=== PATIENT | female | born 1975 | race Two or more races ===

== ENCOUNTER 2024-02-23 18:03 | Outpatient (REF) | payer MEDICAID, SELFPAY | END 2024-02-23 18:04 | disposition home or self-care (01) | LOC: HO.HHCLNP 18:03 | PROVIDERS: Visit Provider Nurse Practitioner Family | DX: R39.9 Unspecified symptoms and signs involving the genitourinary system (principal) | CPT/HCPCS: 87086 ==

== ENCOUNTER 2024-10-17 13:19 | Outpatient (REF) | payer MEDICAID, SELFPAY ==
--- NOTE | ~2024-10-17 | XR_ITS ---
EXAMINATION: XR HAND, RIGHT XR HAND, LEFT CLINICAL INFORMATION: Lateral hand pain and swelling. Lupus. COMPARISON: None. TECHNIQUE: PA, oblique, and lateral views of the right and left hand. FINDINGS: Right hand: No fracture or dislocation. Normal carpal alignment. No significant joint space narrowing or marginal osteophytes. No osseous erosion. No periarticular osteopenia. No abnormal soft tissue calcification. Left hand: No fracture or dislocation. Normal carpal alignment. No significant joint space narrowing or marginal osteophytes. No osseous erosion. No periarticular osteopenia. No abnormal soft tissue calcification. XR/XR hand RT min 3V IMPRESSION: RIGHT HAND: Unremarkable examination. LEFT HAND: Unremarkable examination. Electronically signed by: Anuel Hogan MD 10/17/2024 04:05 PM BOB
--- NOTE | ~2024-10-17 | XR_ITS ---
EXAMINATION: XR HAND, RIGHT XR HAND, LEFT CLINICAL INFORMATION: Lateral hand pain and swelling. Lupus. COMPARISON: None. TECHNIQUE: PA, oblique, and lateral views of the right and left hand. FINDINGS: Right hand: No fracture or dislocation. Normal carpal alignment. No significant joint space narrowing or marginal osteophytes. No osseous erosion. No periarticular osteopenia. No abnormal soft tissue calcification. Left hand: No fracture or dislocation. Normal carpal alignment. No significant joint space narrowing or marginal osteophytes. No osseous erosion. No periarticular osteopenia. No abnormal soft tissue calcification. XR/XR hand LT min 3V IMPRESSION: RIGHT HAND: Unremarkable examination. LEFT HAND: Unremarkable examination. Electronically signed by: Anuel Hogan MD 10/17/2024 04:05 PM BOB
== END 2024-10-17 13:20 | disposition home or self-care (01) ==
LOC: HO.HHCX 13:19
PROVIDERS: Visit Provider Family Medicine
DX: M79.641 Pain in right hand (principal); M79.642 Pain in left hand
CPT/HCPCS: 73130

== ENCOUNTER 2024-10-17 13:37 | Outpatient (REF) | payer MEDICAID, SELFPAY ==
[2024-10-17 16:09] LABS: Hematocrit 43.8 % (37.0-47.0); Hemoglobin 14.9 g/dl (12.0-16.0); Mean Corpuscular Hemoglobin 30.4 pg (27.0-33.0); Mean Corpuscular Volume 89.4 fL (80.0-98.0); Mean Platelet Volume 11.1 fL (9.4-12.3); Platelet Count 216 X10*3/uL (160-400); White Blood Count 7.7 X10*3/uL (4.8-10.8)
[2024-10-17 16:22] LABS: Estimated Average Glucose 100 mg/dL; Hemoglobin A1C 119.5487 umol/L; Hemoglobin A1c % 5.1 % (<6.0); Total Hemoglobin (HGBA1C) 3761.7061 umol/L
[2024-10-17 16:27] LABS: Rheumatoid Factor < 13.0 IU/mL (<15.0)
[2024-10-17 16:32] LABS: Alanine Aminotransferase 37 U/L (0-31); Albumin Level 4.3 g/dL (3.5-5.0); Anion Gap 11 (12-20); Aspartate Amino Transferase 28 U/L (5-31); Bilirubin Direct 0.2 mg/dL (0.0-0.5); Bilirubin Total 0.5 mg/dL (0.0-1.0); Blood Urea Nitrogen 12 mg/dL (9-16); Calcium 9.4 mg/dL (8.4-10.2); Carbon Dioxide 28 mmol/L (22-29); Chloride 104 mmol/L (96-108); Cholesterol 175 mg/dL (<200); Estimated Glomerular Filt Rate > 60; Glucose Random 91 mg/dL (60-115); HDL Cholesterol 53 mg/dL (>40); LDL Cholesterol Calculated 97 mg/dL (<100); Potassium 3.8 mmol/L (3.3-5.1); Sodium 139 mmol/L (135-145); Total Protein 7.4 g/dL (6.5-8.0); Triglycerides 128 mg/dL (<150)
[2024-10-17 16:56] LABS: Free T4 (Free Thyroxine) 0.96 ng/dL (0.71-1.85); Thyroid Stimulating Hormone 2.73 uIU/mL (0.32-4.0); Vitamin D 25-OH Total 39.2 ng/mL (>30)
[2024-10-17 17:00] LABS: Alkaline Phosphatase 77 U/L (39-117)
[2024-10-17 17:27] LABS: Erythrocyte Sedimentation Rate 7 MM/HR (0-20)
[2024-10-17 18:54] LABS: CT PCR NOT DETECTED (Not Detect.); NG PCR NOT DETECTED (Not Detect.)
[2024-10-18 08:23] LABS: Hepatitis A Antibody IgG REACTIVE (Nonreactive); ~Hepatitis A Antibody IgG 11.21 S/CO (0.00-0.99)
[2024-10-18 08:24] LABS: HBS Num1 1.03 mIU/mL (0-7.99); HBc Num1 0.11 S/CO (0.00-0.79); HBsAGNum1 0.39 S/CO (0.00-0.99); HIV AB/AG Nonreactive (Nonreactive); HIV Num 1 0.09 S/CO (0.00-0.99); Hepatitis B Core Antibody Nonreactive (Nonreactive); Hepatitis B Surface Antigen Negative (Negative); ~HepC Num1 0.05 S/CO (0.00-0.79); ~Hepatitis B Surface Antibody NONREACTIVE (Nonreactive); ~Hepatitis C Antibody Nonreactive (Nonreactive)
[2024-10-18 17:54] LABS: Lyme Abs Screen <0.90 index
[2024-10-21 11:18] LABS: RPR Rapid Plasma Reagin NON-REACTIVE (NON-REACTIVE)
[2024-10-22 09:04] LABS: Anti Nuclear Antibody Screen POSITIVE (NEGATIVE)
[2024-10-22 09:12] LABS: Anti Nuclear Antibody Pattern Nuclear, Homogeneous
== END 2024-10-17 13:38 | disposition home or self-care (01) ==
LOC: HO.HHCL 13:37
PROVIDERS: Visit Provider Family Medicine
DX: Z11.3 Encounter for screening for infections with a predominantly sexual mode of transmission (principal); Z11.4 Encounter for screening for human immunodeficiency virus [HIV]; M79.641 Pain in right hand; M79.642 Pain in left hand; M79.89 Other specified soft tissue disorders
CPT/HCPCS: 80048; 80061; 80076; 82306; 83036; 84439; 84443; 85027; 85652; 86038; 86039; 86140; 86431; 86592; 86617; 86618; 86704; 86706; 86708; 86803; 87340; 87389; 87491; 87591

== ENCOUNTER 2025-02-18 10:10 | Outpatient (REF) | payer MEDICAID, SELFPAY ==
--- OUTSIDE RECORDS SUMMARY | 2025-02-18 11:37 | XMS_ITS | Clinical Summary ---
Author Organization [employer] Address [address] [place] [address] Care Team Providers Care Abattoir Manager Name Role Phone Chayito Holman DO Primary Care Provider [phone] Allergies No known active allergies Medications * This document contains information received from the source organization and may not represent a complete record from that organization. Blood Pressure Monitoring (Comfort Touch BP Cuff/Large) misc 1 kit 2 times daily. 1 each 07/09/20 24 Active omeprazole OTC (PriLOSEC OTC) 20 MG EC tablet Take 1 tablet (20 mg) by mouth before breakfast. Do not crush, chew, or split. 30 tablet 11 07/09/20 24 025 Active furosemide (Lasix) 20 MG tablet Take 1 tablet (20 mg) by mouth Once per day for 7 days. 7 tablet 10/15/20 24 Active naproxen (Naprosyn) 500 MG tablet Take 1 tablet (500 mg) by mouth if needed in the morning and at bedtime for mild pain. 40 tablet 1 11/18/19 25 026 Active baclofen (Lioresal) 10 MG tablet Take 1 tablet (10 mg) by mouth if needed in the morning, at noon, and at bedtime for muscle spasms. 60 tablet 1 11/18/19 25 Active Diclofenac Sodium 1 % gel Apply 2 g topically if needed in the morning, at noon, in the evening, and at bedtime (pain). 150 g 3 11/18/19 25 Active FLUoxetine (PROzac) 10 MG tablet Take 1 tablet (10 mg) by mouth Once per day. 30 tablet 2 11/18/19 25 Active hydrOXYzine pamoate (Vistaril) 25 MG capsule Take 1 capsule (25 mg) by mouth if needed in the morning, at noon, in the evening, and at bedtime for anxiety. 30 capsule 1 11/18/19 25 Active Drospirenone (Slynd) 4 MG tablet Take 1 tablet by mouth Once per day. 28 tablet 11 02/19/20 25 Active cetirizine (ZyrTEC) 10 MG tablet Take 1 tablet (10 mg) by mouth Once per day. 30 tablet 2 02/19/20 25 025 Active norethindrone (Ortho Micronor) 0.35 MG tabletIndications :Family planning counseling,Encoun ter for surveillance of contraceptive pills Take 1 tablet (0.35 mg) by mouth Once per day. 28 tablet 11 01/08/20 25 025 Discontinued Active Problems Problem Noted Date Diagnosed Date Perimenopause 01/07/2025 Assessment & Plan (01/07/2025 5:13 PM EDT): I ordered labs today and I refer patient for follow-up regarding perimenopausal state and counseling about control Encounter for surveillance of contraceptive pill s 01/07/2025 Assessment & Plan (01/07/2025 5:13 PM EDT): I will refill norethindrone 0.35 mg daily Moderate major depression 11/18/2024 SLE (systemic lupus erythematosus) 10/18/2024 Anxiety 10/18/2024 Chronic gastroesophageal reflux disease 10/18/20 24 Raynaud disease 10/18/2024 Encounters * This document contains information received from the source organization and may not represent a complete record from that organization. Date Type Department Care Team Description 02/18/2025 9:15 AM EDT Office Visit [facility] [address] [place] [phone] Neetu Strickland CNM Cervical cancer screening (Primary Dx); Encounter for surveillance of contraceptive pills; Amenorrhea; Environmental allergies 02/18/2025 Travel 01/07/2025 3:20 PM EDT Office Visit [facility] [address] [place] [address] Susanna Flynn MD Family planning counseling; Encounter for surveillance of contraceptive pills; Perimenopause from Last 3 Months Immunizations Name Administration Dates Next Due Hep B, adult 11/18/2024 Tdap 11/18/2024 Family History Medical History Relation Name Comments No Known Problems Brother No Known Problems Father Heart disease Maternal Grandfather Diabetes Mother Heart disease Mother Hypertension Mother Heart disease Mother's Brother Diabetes Paternal Grandmother No Known Problems Sister Relation Name Status Comments Brother Father Maternal Grandfather Mother Mother's Brother Paternal Grandmother Sister Social History Tobacco Use Types Packs/Day Years Used Date Smoking Tobacco: Never Passive Smoke Exposure: Never Smokeless Tobacco: Never Tobacco Cessation:Counseling Given: Not Answered Alcohol Use Standard Drinks/Week Comments Not Currently 0 (1 standard drink = 0.6 oz pur e alcohol) Depression Answer Date Recorded Patient Health Questionnaire-9 Score 10 11/18/2024 Patient Health Questionnaire-9 Score 10 11/18/2024 Last PHQ-9: Questionnaire Data Not on file 0 11/18/2024 Housing Stability Answer Date Recorded What is your housing situation today? I have nicki leon 11/18/[address] you li ve. Do you have problems with any of the following? None of the above 11/18/2024 Food Insecurity Answer Date Recorded Within the past 12 months, y ou worried that your food would run out before you got money to buy more: Never True 11/18/2024 Within the past 12 months,th e food you bought just didn't last and you didn't have enough money to get more: Never True Transportation Answer Date Recorded In the past 12 months, has l ack of transportation kept you from medical appts, meetings, work or from getting things needed for daily living? No 11/18/2024 Utilities Answer Date Recorded In the past 12 months, has t he [employer], gas, oil or water company threatened to shut off services in your home? No 11/18/2024 Depression Answer Date Recorded Patient Health Questionnaire-2 Score 2 11/18/2024 Internet Access Answer Date Recorded Internet Access Q1 Yes 11/18/2024 Internet Access Q2 Not on file 11/18/2024 Comments No Sex and Gender Information Value Date Recorded Sex Assigned at Female 02/23/2024 9:15 AM EDT Legal Sex Female 9:10 AM EDT Gender Identity Female 02/23/2024 9:15 AM EDT Sexual Orientation Straight 02/23/2024 9: 15 AM EDT Last Filed Vital Signs Vital Sign Reading Time Taken Comments Blood Pressure 144/83 02/18/2025 9:31 AM EDT Pulse 86 02/18/2025 9:31 AM EDT Temperature 36.6 ??C (97.8 ??F) 02/18/2025 9:31 AM ED T Respiratory Rate 16 02/18/2025 9:31 AM EDT Oxygen Saturation 99% 02/18/2025 9:31 AM EDT Inhaled Oxygen Concentration - - Weight 91.6 kg (202 lb) 02/18/2025 9:31 AM EDT Height 162.6 cm (5' 4 ) 02/18/2025 9:31 AM EDT Body Mass Index 34.67 02/18/2025 9:31 AM EDT Plan of Treatment Health Maintenance Due Date Last Done Comments CT Colonography 1977 Colonoscopy 1977 Colorectal Cancer Screening 1977 FIT DNA/Cologuard 1977 FIT 1977 FOBT 1977 Sigmoidoscopy 1977 Alcohol/Substance Use Screening 1989 Pap Smear 1998 Cervical Cancer Screening 2007 HPV/Cotest 2007 COVID-19 Vaccine ( - 2023-2 5 season) 2024 Influenza Vaccine (#1) 2024 Hepatitis B Vaccines (2 of 3 - 19+ 3-dose series) 12/16/2024 11/18/2024 Tobacco Screening 10/18/2025 10/18/2024 Depression Screening 11/18/2025 11/18/2024, 11/18/2024 SDOH Screening 11/18/2025 11/18/2024 Mammogram 12/03/2025 12/03/2024, 12/03/2024 Family Planning (PISQ) 02/18/2026 02/18/2025 Zoster Vaccines (1 of 2) 2027 DTaP/Tdap/Td Vaccines (2 - T d or Tdap) 11/18/2034 11/18/2024 RSV Patients and Patients Aged 60 years or older (1 - 1-dose 75+ series) 2052 HIV Screening Completed 10/17/2024 Hepatitis C Screening Completed 10/17/2024 HIB Vaccines Aged Out No longer eligi ble based on patient's age to complete this topic HPV Vaccines Aged Out No longer eligi ble based on patient's age to complete this topic Hepatitis A Vaccines Aged Out No long er eligible based on patient's age to complete this topic IPV Vaccines Aged Out No longer eligi ble based on patient's age to complete this topic Meningococcal Vaccine Aged Out No anna latesha eligible based on patient's age to complete this topic Pneumococcal Vaccine: Pediatrics (0 to 5 Years) and At-Risk Patients (6 to 49) Years) Aged Out No longer eligible b ased on patient's age to complete this topic RSV under 20 months Aged Out No longe r eligible based on patient's age to complete this topic Rotavirus Vaccines Aged Out No longer eligible based on patient's age to complete this topic Procedures Procedure Name Priority Date/Time Associated Diagnosis Comments HEPATITIS C AB W/REFL TO HCV RNA, QN, PCR Routine 10/17/2024 3:42 PM EST Bilateral hand pain Swelling of both lower extremities Encounter for surveillance of contraceptive pills HIV 1/2 ANTIGEN/ANTIBODY, FOURTH GENERATION W/RFL Routine 10/17/2024 3:42 PM EST Bilateral hand pain Swelling of both lower extremities Encounter for surveillance of contraceptive pills from Last 3 Months or Most Recently Relevant to Health Maintenance Results * Hepatitis C Antibody with Reflex to HCV, RNA, Quantitative, Real-Time PCR (10/17/2024 3:42 PM EST) Hepatitis C Antibody Nonreactive Nonreactive [facility] Comment:Antibodies to HCV no t detected; does not exclude early acuteHCV infection. Blood Venous blood specimen / Unknown 10/17/2024 3:42 PM EST 10/17/2024 3:56 PM EST us Chayito Holman DO LAB BLOOD ORDERABLES Final R esult [facility] [address] [place] [phone] * HIV-1/2 Antigen and Antibodies, Fourth Generation, with Reflexes (10/17/2024 3:42 PM EST) HIV AB/AG Nonreactive Nonreactive [facility] Comment:HIV-1 p24 Ag and/or HIV-1/HIV-2 Ab not detected.A test result that is nonreactive does not exclude thepossibility of exposure to or infection with HIV-1 and/orHIV-2. Nonreactive results in this assay for individualswith prior exposure to HIV-1 and/or HIV-2 may be due toantigen and antibody levels that are below the limit ofdetection of this assay.The [employer] HIV Ag/Ab Combo assay result andsupplemental assay results should be interpreted inconjunction with the patient's clinical presentation,history and other laboratory results. If the results areinconsistent with clinical evidence, additional testing issuggested to confirm the result. Blood Venous blood specimen / Unknown 10/17/2024 3:42 PM EST 10/17/2024 3:56 PM EST us Chayito Holman DO LAB BLOOD ORDERABLES Final R esult [facility] [address] [place] [phone] from Last 3 Months or Most Recently Relevant to Health Maintenance [facility] Care Teams Abattoir Manager Relationship Specialty Start Date End Date Chayito Holman DO [address] [place] [id number] PCP - General Family Medicine 11/19/24
--- OUTSIDE RECORDS SUMMARY | 2025-02-18 11:37 | XMS_ITS | Clinical Summary ---
Author Organization [facility] Address [address] [place] [address] Care Team Providers Care Show Host Or Hostess Name Role Phone [facility] Primary Care Provider [phone] Allergies No known active allergies Medications acetaminophen (TYLENOL) 650 mg 8 hr tablet Take 650 mg by mouth every 8 hours as needed. 5 Active diclofenac (VOLTAREN) 1% gel Apply 2 g topically to the affected area 4 times daily as needed. 5 Active FLUoxetine (PROzac) 10 mg tablet Take 10 mg by mouth daily. 5 Active naproxen (NAPROSYN) 500 mg tablet Take 500 mg by mouth 2 times daily as needed. 5 11/18/19 26 Active norethindrone (MICRONOR) 0.35 mg tablet Take 0.35 mg by mouth daily. 4 10/14/20 25 Active Active Problems Problem Noted Date Diagnosed Date Systemic lupus erythematosus 12/23/2024 Arthralgia of multiple sites 12/23/2024 Language barrier 12/23/2024 Encounters Date Type Department Care Team Description 12/25/2024 Results Follow-Up [facility] [address] [place] [address] White Sugar Supervisor: Heidi Rawls MD 12/23/2024 3:00 PM EST - 12/23/2024 11:59 PM EST Hospital Encounter [facility] XRay [address] [place] [address] Heidi Jenkins MD Arthralgia of multiple sites Discharge Disposition: Home or Self Care (01) 12/23/2024 2:40 PM EST Office Visit [facility] [address] [place] [phone] White [employer] Supervisor: Heidi Rawls MD Systemic lupus erythematosus with other organ involvement, unspecified SLE type (Primary Dx); Bilateral hand pain; Arthralgia of multiple sites; Language barrier from Last 3 Months Social History Tobacco Use Types Packs/Day Years Used Date Smoking Tobacco: Former Cigarettes Passive Smoke Exposure: Past Smokeless Tobacco: Never Tobacco Cessation:Counseling Given: Not Answered Alcohol Use Standard Drinks/Week Comments Yes 0 (1 standard drink = 0.6 oz pur e alcohol) Comments Unknown Sex and Gender Information Value Date Recorded Sex Assigned at Female 10/21/2024 10:58 AM EST Legal Sex Female 10:55 AM EST Gender Identity Female 10/21/2024 10:58 AM EST Sexual Orientation Not on file Last Filed Vital Signs Vital Sign Reading Time Taken Comments Blood Pressure 125/85 12/23/2024 2:28 PM EST Pulse 70 12/23/2024 2:28 PM EST Temperature 36.9 ??C (98.4 ??F) 12/23/2024 2:28 PM ES T Respiratory Rate - - Oxygen Saturation - - Inhaled Oxygen Concentration - - Weight 91.6 kg (202 lb) 12/23/2024 2:28 PM EST Height - - Body Mass Index - - Plan of Treatment Upcoming Encounters Date Type Department Care Team (Late st Contact Info) Description 07/11/2025 11:20 AM EDT Office Visit [facility] [address] [place] [phone] White [employer] Supervisor: Heidi Naik MD [address] [place] [phone] Health Maintenance Due Date Last Done Comments Cervical Cancer Screening 1977 Cologuard 1977 Colonoscopy 1977 HPV and Pap Smear 1977 Pap Smear 1977 Sigmoidoscopy 1977 COVID-19 Vaccine (1 - 2023-2 5 season) 2024 Alcohol/Substance Use Screening 10/23/2024 Depression Screening and Follow-Up 10/23/2024 Social Drivers of Health Annual Screening 10/23/2024 Hepatitis B Vaccines (2 of 3 - 19+ 3-dose series) 12/16/2024 11/18/2024 Influenza Vaccine (Season Ended) 2025 Colon Cancer Screening 10/17/2025 FOBT / Fit Test 10/17/2025 10/17/2024 Mammogram 12/03/2026 12/03/2024 DTaP,Tdap,and Td Vaccines (2 - Td or Tdap) 11/18/2034 11/18/2024 RSV Vaccine (60+ years old a nd patients) (1 - 1-dose 75+ series) 2052 HIV Screening Completed 10/17/2024, 10/17/2024 Hepatitis C Screening Completed 10/17/2024 Pneumococcal Vaccine: Pediatric (0-5 Years) and At-Risk Patients (6-50 Years) Aged Out No longer eligible based on patient's age to complete this topic Procedures * Due to [place] state law, this organization might not be sharing negative HIV tests. Procedure Name Priority Date/Time Associated Diagnosis Comments LUIS A, TITER AND PATTERN Routine 3:24 PM EST Systemic lupus erythematosus with other organ involvement, unspecified SLE type MCKNIGHT TOP, URN Routine 12/23/2024 3:24 PM EST Systemic lupus erythematosus with other organ involvement, unspecified SLE type UA/CULTURE REFLEX Routine 12/23/2024 3:2 4 PM EST Systemic lupus erythematosus with other organ involvement, unspecified SLE type URINALYSIS W/REFLEX TO MICROSCOPIC & CULTURE Routine 12/23/2024 3:24 PM EST Systemic lupus erythematosus with other organ involvement, unspecified SLE type PROTEIN ELECTROPHORESIS W/REFLEX TO IMMUNOFIXATION, SERUM Routine 12/23/2024 3:24 PM EST Systemic lupus erythematosus with other organ involvement, unspecified SLE type SSA & SSB (SJOGREN'S) ANTIBODIES Routine 12/23/2024 3:24 PM EST Systemic lupus erythematosus with other organ involvement, unspecified SLE type VITAMIN D, 25-HYDROXY, TOTAL, IMMUNOASSAY Routine 12/23/2024 3:24 PM EST Systemic lupus erythematosus with other organ involvement, unspecified SLE type TSH REFLEX FREE T4 Routine 12/23/2024 3: 24 PM EST Systemic lupus erythematosus with other organ involvement, unspecified SLE type PROTEIN, RANDOM URINE WITH CREATININE Routine 12/23/2024 3:24 PM EST Systemic lupus erythematosus with other organ involvement, unspecified SLE type MICROALBUMIN, RANDOM URINE WITH CREATININE Routine 12/23/2024 3:24 PM EST Systemic lupus erythematosus with other organ involvement, unspecified SLE type COMPREHENSIVE METABOLIC PANEL Routine 12/23/2024 3:24 PM EST Systemic lupus erythematosus with other organ involvement, unspecified SLE type CBC AUTO DIFFERENTIAL Routine 12/23/2024 3:24 PM EST Systemic lupus erythematosus with other organ involvement, unspecified SLE type C-REACTIVE PROTEIN Routine 12/23/2024 3: 24 PM EST Systemic lupus erythematosus with other organ involvement, unspecified SLE type SEDIMENTATION RATE, AUTOMATED Routine 12/23/2024 3:24 PM EST Systemic lupus erythematosus with other organ involvement, unspecified SLE type RHEUMATOID FACTOR Routine 12/23/2024 3:2 4 PM EST Systemic lupus erythematosus with other organ involvement, unspecified SLE type CYCLIC CITRULLLNATED PEPTIDE (CCP) ANTIBODY, IGG Routine 12/23/2024 3:24 PM EST Systemic lupus erythematosus with other organ involvement, unspecified SLE type DNA ANTIBODY, DOUBLE-STRANDED Routine 12/23/2024 3:24 PM EST Systemic lupus erythematosus with other organ involvement, unspecified SLE type DNA ANTIBODY (DS) CRITHIDIA IFA W/REFLEX Routine 12/23/2024 3:24 PM EST Systemic lupus erythematosus with other organ involvement, unspecified SLE type COMPLEMENT C3 Routine 12/23/2024 3:24 PM EST Systemic lupus erythematosus with other organ involvement, unspecified SLE type COMPLEMENT C4 Routine 12/23/2024 3:24 PM EST Systemic lupus erythematosus with other organ involvement, unspecified SLE type ANALYZER LUIS A, IFA W/RFX TO TTR/PAT, SYSTEMIC AUTOIMMUNE PANEL [id number] Routine 12/23/2024 3:24 PM EST Systemic lupus erythematosus with other organ involvement, unspecified SLE type XR FOOT 3+ VW RIGHT Routine 12/23/2024 3 :21 PM EST Arthralgia of multiple sites XR FOOT 3+ VW LEFT Routine 12/23/2024 3: 21 PM EST Arthralgia of multiple sites XR HAND 3+ VW RIGHT Routine 12/23/2024 3 :21 PM EST Arthralgia of multiple sites XR HAND 3+ VW LEFT Routine 12/23/2024 3: 21 PM EST Arthralgia of multiple sites from Last 3 Months Results * Due to [place] state law, this organization might not be sharing negative HIV tests. * Mcknight Top, Urine (12/23/2024 3:24 PM EST) Extra Tube Hold for add-ons. 12/23/2024 8:05 PM EST [facility] Comment:Auto resulted. Urine Urine specimen collection, clean catch / Unknown Non-Blood Collection / Unknown 12/23/2024 3:24 PM EST 12/23/2024 5:00 PM EST Heidi Camacho MD LAB URINE ORDERABLES Final Result Performing Organization Address City/State/[facility] Co de Phone Number [facility] [address] [place] [address], [place] * (ABNORMAL) LUIS A, Titer and Pattern (12/23/2024 3:24 PM EST) LUIS A Titer 1 1:160(H) titer 01/01/2025 1:18 PM EDT [facility]/N Index [facility] Comment: Reference Ranges for Anti-Nuclear Ab Titer: ?? <1:40 ?Negative ?? 1:40-1:80 ??Low Antibody Level ?? >1:80 ?Elevated Antibody Level LUIS A Pattern 1 NUCLEAR, HOMOGENEOUS 01/01/2025 1:18 PM EDT [facility]/N [facility] Comment: Homogeneous pattern is associated with systemic lupus erythematosus (SLE), drug-induced lupus and juvenile idiopathic arthritis. AC-1: Homogeneous International Consensus on LUIS A Patterns https://doi.org/10.1515/imfq-2109-0963 Blood Structure of peripheral vein / Unknown Venipuncture / Unknown 12/23/2024 3:24 PM EST 12/23/2024 3:43 PM EST Narrative [facility] - 01/01/2025 1:18 PM EDT [facility] Received Date:[id number] Heidi Camacho MD LAB BLOOD ORDERABLES Final Result Performing Organization Address [facility] Co de Phone Number [facility] [address] [place] [address], [place] [phone] * (ABNORMAL) ANAlyzeR LUIS A, IFA w/Rfx Ttr/Pat, Systemic Autoimmune Panel 1 (includes LUIS A, IFA w/Rfx, DNA (ds) w/Rfx to Ttr, Chromatin, Sm, SM/SERVICES CLERK, SERVICES CLERK, SSA, SSB, Scl70, Jo1, CENPB, C3c, C4c, CardiolipinIgA/G/M, B2-GPI IgA/G/M, RF IgA/G/M, CCP IgG, MCV Ab (12/23/2024 3:24 PM EST) LUIS A Screen, IFA POSITIVE(A) NEGATIVE 01/02/20 1:18 PM EDT [facility] Comment: LUIS A IFA is a first line screen for detecting the presence of up to approximately 150 autoantibodies in various autoimmune diseases. A positive LUIS A IFA result is suggestive of autoimmune disease and reflexes to titer and pattern. Further laboratory testing may be considered if clinically indicated. For additional information, please refer to http://education.[employer]/faq/LKL571 (This link is being provided for informational/educational purposes only.) DNA Ab(ds) Crithidia, IFA NEGATIVE NEGATIVE 01/01/2025 1:18 PM EDT [facility] Chromatin Antibody <1.0 NEG <1.0 NEGATIVE AI 01/01/2025 1:18 PM EDT [facility] Sm Antibody <1.0 NEG <1.0 NEGATIVE AI 01/01/2025 1:18 PM EDT [facility] SM/SERVICES CLERK Antibody <1.0 NEG <1.0 NEGATIVE AI 01/01/2025 1:18 PM EDT [facility] SERVICES CLERK Antibody 1.0 POS(A) <1.0 NEGATIVE AI 01/01/2025 1:18 PM EDT [facility] Sjogren's Ab (SS-A) 1.3 POS(A) <1.0 NEGATIVE AI 01/01/2025 1:18 PM EDT [facility] Sjogren's Ab (SS-B) <1.0 NEG <1.0 NEGATIVE AI 01/01/2025 1:18 PM EDT [facility] SCL-70 Antibody <1.0 NEG <1.0 NEGATIVE AI 01/01/2025 1:18 PM EDT [facility] JENNIFER-1 Antibody <1.0 NEG <1.0 NEGATIVE AI 01/01/2025 1:18 PM EDT [facility]/ [facility] Centromere B Antibody <1.0 NEG <1.0 NEGATIVE AI 01/01/2025 1:18 PM EDT [facility] Complement Component C3C 124 83 - 193 mg/dL 01/01/2025 1:18 PM EDT [facility] Complement Component C4C 23 15 - 57 mg/dL 01/01/2025 1:18 PM EDT [facility] Cardiolipin Ab IgA 6.7 APL-U/mL 2024 1:18 PM EDT [facility]/ [facility] Comment: Value ?Interpretation ----- ? <20.0 ?Antibody not detected > or = 20.0 ??Antibody detected Cardiolipin Ab IgG <2.0 GPL-U/mL 2024 1:18 PM EDT [facility]/ [facility] Comment: Value ?Interpretation ----- ? <20.0 ?Antibody not detected > or = 20.0 ??Antibody detected Cardiolipin Ab IgM <2.0 MPL-U/mL 2024 1:18 PM EDT [facility]/ [facility] Comment: Value ?Interpretation ----- ? <20.0 ?Antibody not detected > or = 20.0 ??Antibody detected Beta2-Glycoprotein I (IgA) 9.1 U/mL 01/01/2025 1:18 PM EDT [facility] Comment: Value ?Interpretation ----- ? <20.0 ?Antibody not detected > or = 20.0 ??Antibody detected Beta2-Glycoprotein I (IgG) 2.6 U/mL 01/01/2025 1:18 PM EDT [facility] [employer] [facility] Comment: Value ?Interpretation ----- ? <20.0 ?Antibody not detected > or = 20.0 ??Antibody detected Beta2-Glycoprotein I (IgM) <2.0 U/mL 01/01/2025 1:18 PM EDT [facility] [employer] [facility] Comment: The antiphospholipid antibody syndrome (APS) is a clinical-pathologic correlation that includes a clinical event (e.g. arterial or venous thrombosis, morbidity) and persistent positive antiphospholipid antibodies (IgM, IgG Cardiolipin or b2GPI antibodies greater than the 99th percentile; or a lupus anticoagulant). International consensus guidelines for APS suggest waiting at least 12 weeks before retesting to confirm antibody persistence. The Systemic Lupus International Collaborating Clinics immunological classification criteria for systemic lupus erythematosus (SLE) include testing for isotype IgA, which has yet to be incorporated into APS criteria. Low level antiphospholipid antibodies may sometimes be detected in the setting of infection, drug therapy or aging. For additional information, please refer to http://education.SyndicateRoom/faq/XFN934 (This link is being provided for informational/educational purposes only.) Value ?Interpretation ----- ? <20.0 ?Antibody not detected > or = 20.0 ??Antibody detected Rheumatoid Factor IgA <5 U 01/01/2025 1:18 PM EDT [facility] [employer] [facility] Comment: ?Reference Range: ?<=6 ??NEGATIVE ?>6 ?? POSITIVE Rheumatoid Factor IgG <5 U 01/01/2025 1:18 PM EDT [facility] Comment: ?Reference Range: ?<=6 ??NEGATIVE ?>6 ?? POSITIVE Rheumatoid Factor IgM <5 U 01/01/2025 1:18 PM EDT [facility] Comment: ?Reference Range: ?<=6 NEGATIVE ?>6 ??POSITIVE Cyclic Citrullinated Peptide (CCP) Ab (IgG) <16 Units 01/01/2025 1:18 PM EDT [facility] Comment: ?Reference Range: ?NEGATIVE: ? <20 ?WEAK POSITIVE: ? 20-39 ?MODERATE POSITIVE: ? 40-59 ?STRONG POSITIVE ? >59 Mutated Citrullinated Vimentin (MCV) Ab <20 <20 U/mL 01/01/2025 1:18 PM EDT [facility] [employer] [facility] Comment: Anti-mutated citrullinated vimentin antibody may be used as a second-line marker of rheumatoid arthritis, in addition to rheumatoid factor and anti-cyclic citrullinated peptide (CCP). Thyroid Peroxidase Antibodies <1 <9 IU/mL 01/01/2025 1:18 PM EDT [facility]/ [employer] [facility] [facility] Blood Structure of peripheral vein / Unknown Venipuncture / Unknown 12/23/2024 3:24 PM EST 12/23/2024 3:43 PM EST Narrative [facility] - 01/01/2025 1:18 PM EDT [facility] Received Date: Heidi Camacho MD LAB BLOOD ORDERABLES Final Result [facility] [place] [address], [address] [place] [address], [place] [phone] [facility] [address] [facility] [address], [place] [phone] * Urinalysis W/Reflex to Microscopic & Culture (12/23/2024 3:24 PM EST) Color, Urine Yellow Colorless, Light Yellow, Yellow, Dark Yellow 12/23/2024 5:12 PM EST [facility] Clarity, Urine Clear Clear 12/23/2024 5:12 PM EST [facility] Specific [place], Urine 1.017 1.005 - 1.030 12/23/2024 5:12 PM EST [facility] pH, Urine 6.0 4.6 - 8.0 12/23/2024 5:12 PM EST [facility] Protein, Urine Negative Negative 12/23/2024 5:12 PM EST [facility] Glucose, Urine Negative Negative 12/23/2024 5:12 PM EST [facility] Ketones, Urine Negative Negative 12/23/2024 5:12 PM EST [facility] Bilirubin, Urine Negative Negative 12/23/2024 5:12 PM EST [facility] Blood, Urine Negative Negative 12/23/2024 5:12 PM EST [facility] Nitrite, Urine Negative Negative 12/23/2024 5:12 PM EST [facility] Urobilinogen, Urine Normal Normal 12/23/2024 5:12 PM EST [facility] Leukocyte Esterase, Urine Negative Negative 12/23/2024 5:12 PM EST [facility] Urine Urine specimen collection, clean catch / Unknown Non-Blood Collection / Unknown 12/23/2024 3:24 PM EST 12/23/2024 5:00 PM EST Heidi Camacho MD LAB URINE ORDERABLES Final Result [facility] [address] [place] [address], [place] * DNA Antibody (ds) Crithidia IFA w/Reflex (12/23/2024 3:24 PM EST) DNA Ab(ds) Crithidia, IFA Negative Negative 12/27/2024 11:55 AM EST [facility]) Blood Structure of peripheral vein / Unknown Venipuncture / Unknown 12/23/2024 3:24 PM EST 12/23/2024 3:43 PM EST Narrative [facility] - 12/27/2024 11:55 AM EST [facility] Received Date:[id number] Heidi Camacho MD LAB BLOOD ORDERABLES Final Result [facility] [address], [place] [address], [facility] ([facility]) [address] [place], [place] , [place] * (ABNORMAL) SSA & SSB (SJOGREN'S) Antibodies (12/23/2024 3:24 PM EST) Sjogren's Ab (SS-A) 1.5 POS(A) <1.0 NEG AI 12/24/2024 1:58 PM EST [facility] Sjogren's Ab (SS-B) <1.0 NEG <1.0 NEG AI 12/24/2024 1:58 PM EST [facility] Blood Structure of peripheral vein / Unknown Venipuncture / Unknown 12/23/2024 3:24 PM EST 12/23/2024 3:43 PM EST Narrative [facility] - 12/24/2024 1:58 PM EST [facility] Received Date: Heidi Camacho MD LAB BLOOD ORDERABLES Final Result [facility] [address], [place] [address], [facility] [employer] [facility] [address] [facility] [address], [place] [address], * Protein Electrophoresis w/Reflex to Immunofixation, Serum (12/23/2024 3:24 PM EST) Protein, Total 7.1 6.1 - 8.1 g/dL 12/24/2024 10:13 PM EST [facility] Albumin 4.2 3.8 - 4.8 g/dL 12/24/2024 10:13 PM EST [facility] Alpha 1 Globulin 0.3 0.2 - 0.3 g/dL 12/24/2024 10:13 PM EST [facility] Alpha 2 Globulin 0.8 0.5 - 0.9 g/dL 12/24/2024 10:13 PM EST [facility] Beta 1 Globulin 0.4 0.4 - 0.6 g/dL 12/24/2024 10:13 PM EST [employer] Beta 2 Globulin 0.4 0.2 - 0.5 g/dL 12/24/2024 10:13 PM EST [facility] [facility] Gamma Globulin 1.1 0.8 - 1.7 g/dL 12/24/2024 10:13 PM EST [facility] Interpretation See Comments 12/24/2024 10:13 PM EST [employer] [facility] Comment: Normal Serum Protein Electrophoresis Pattern. No abnormal protein bands (M-protein) detected. Blood Structure of peripheral vein / Unknown Venipuncture / Unknown 12/23/2024 3:24 PM EST 12/23/2024 3:43 PM EST Narrative [facility] - 12/24/2024 10:13 PM EST [facility] Received Date:[id number] Heidi Camacho MD LAB BLOOD ORDERABLES Final Result [facility] [address], [place] [address], [place] [phone] [employer] [facility] [address] [facility] [address], [place] [address], [place] [phone] * TSH Reflex Free T4 (12/23/2024 3:24 PM EST) TSH 2.980 0.280 - 3.890 uIU/mL 12/23/2024 4:22 PM EST [facility] Comment: Females: 1st trimester ? 0.150-4.000 ??IU/mL 2nd trimester ?? 0.310-4.170 ?IU/mL 3rd trimester ?0.380-4.150 ?IU/mL Blood Structure of peripheral vein / Unknown Venipuncture / Unknown 12/23/2024 3:24 PM EST 12/23/2024 3:43 PM EST Heidi Camacho MD LAB BLOOD ORDERABLES Final Result [facility] [address] [place] [address], * (ABNORMAL) CBC Auto Differential (12/23/2024 3:24 PM EST) WBC 8.1 3.8 - 10.8 10*3/uL 12/23/2024 3:53 PM EST [facility] RBC 4.74 3.80 - 5.10 10*6/uL 12/23/2024 3:53 PM [facility] Hemoglobin 14.6 11.7 - 15.5 g/dL 12/23/2024 3:53 PM EST [facility] Hematocrit 43.0 35.0 - 45.0 % 12/23/2024 3:53 PM [facility] MCV 90.7 80.0 - 100.0 fL 12/23/2024 3:53 PM EST [facility] MCH 30.8 27.0 - 33.0 pg 12/23/2024 3:53 PM [facility] MCHC 34.0 32.0 - 36.0 g/dL 12/23/2024 3:53 PM [facility] RDW 12.3 11.0 - 15.0 % 12/23/2024 3:53 PM [facility] Platelets 212 140 - 400 10*3/uL 12/23/2024 3:53 PM [facility] MPV 10.6 7.5 - 12.5 fL 12/23/2024 3:53 PM [facility] Neutrophil % 58.3 % 12/23/2024 3:53 PM [facility] Immature Grans % 0.5 0.0 - 0.9 % 12/23/2024 3:53 PM [facility] Lymphocyte % 27.6 % 12/23/2024 3:53 PM EST [facility] Monocyte % 11.4 % 12/23/2024 3:53 PM [facility] Eosinophil % 2.0 % 12/23/2024 3:53 PM [facility] Basophil % 0.2 % 12/23/2024 3:53 PM [facility] Neutrophil # 4.70 1.50 - 7.80 10*3/uL 12/23/2024 3:53 PM EST [facility] Immature Grans # 0.04(H) <=0.03 10*3/uL 12/23/2024 3:53 PM EST [facility] Lymphocyte # 2.20 0.85 - 3.90 10*3/uL 12/23/2024 3:53 PM EST [facility] Monocyte # 0.90 0.20 - 0.95 10*3/uL 12/23/2024 3:53 PM EST [facility] Eosinophil # 0.20 0.02 - 0.50 10*3/uL 12/23/2024 3:53 PM EST [facility] Basophil # <0.03 0.00 - 0.20 10*3/uL 12/23/2024 3:53 PM EST [facility] nRBC % 0.0 /100 WBCs 12/23/2024 3:53 PM EST [facility] nRBC # <0.01 <0.01 10*3/uL 12/23/2024 3:53 PM EST [facility] Blood Structure of peripheral vein / Unknown Venipuncture / Unknown 12/23/2024 3:24 PM EST 12/23/2024 3:43 PM EST Heidi Camacho MD LAB BLOOD ORDERABLES Final Result Performing Organization Address City/State/[facility] Co de Phone Number [facility] [address] [place] [address], * Cyclic Citrullinated Peptide (CCP) Antibody, IgG (12/23/2024 3:24 PM EST) Cyclic Citrullinated Peptide (CCP) Ab (IgG) <16 UNITS 12/24/2024 8:58 PM EST [employer] Comment: Reference Range Negative: ?<20 Weak Positive: ? 20-39 Moderate Positive: ?? 40-59 Strong Positive: ? >59 Blood Structure of peripheral vein / Unknown Venipuncture / Unknown 12/23/2024 3:24 PM EST 12/23/2024 3:43 PM EST Narrative [facility] - 12/24/2024 8:58 PM EST [facility] Received Date:[id number] Heidi Camacho MD LAB BLOOD ORDERABLES Final Result [facility] [address], [place] [address], [place] [phone] [employer] [facility] [address] [facility] [address] Floor, [place] [address], [place] [phone] * Microalbumin, Random Urine with Creatinine (12/23/2024 3:24 PM EST) Microalbumin, Urine <2.0 mg/dL 12/23/2024 6:34 PM EST [facility] Creatinine, Urine 82 15 - 278 mg/dL 12/23/2024 6:34 PM EST [facility] Microalb/Creat Ratio, Random Urine 12/23/2024 6:34 PM EST [facility] Comment: < 1.0 mcg/mgCr Microalbumin Reference Range: Normal ? <30 mcg/mg Creatinine Microalbuminuria ? 30-300 mcg/mg Creatinine Clinical Albuminuria >300 mcg/mg Creatinine Reference: ADA Guideline. Diabetes Care. 2004;27 (suppl 1) Urine Urine specimen collection, clean catch / Unknown Non-Blood Collection / Unknown 12/23/2024 3:24 PM EST 12/23/2024 5:00 PM EST Heidi Camacho MD LAB URINE ORDERABLES Final Result [facility] [address] [place] [address], * DNA Antibody, Double-Stranded (12/23/2024 3:24 PM EST) Pathologist [facility] DNA (Ds) Antibody 1 IU/mL 025 2:01 PM EST [facility] Comment: ? IU/mL ? Interpretation ? < or = 4 ?Negative ? 5-9 ? Indeterminate ? > or = 10 ?? Positive Blood Structure of peripheral vein / Unknown Venipuncture / Unknown 12/23/2024 3:24 PM EST 12/23/2024 3:43 PM EST Narrative [facility] 12/24/2024 2:01 PM EST [facility] Received Date: Heidi Camacho MD LAB BLOOD ORDERABLES Final Result Performing Organization Address City/State/[facility] Co de Phone Number [facility] [address] [facility] [address], [place] [address], [place] [phone] [facility] [address] [facility] 3[address], [place] [address], [place] [phone] * Protein, Random Urine with Creatinine (12/23/2024 3:24 PM EST) Pathologist [facility] Protein, Urine 10 mg/dL 12/23/2024 5:45 PM EST [facility] Creatinine, Urine 85 15 - 278 mg/dL 12/23/2024 5:45 PM EST [facility] Protein/Creati nine, Urine Ratio 118 <200 mg/gmCr 12/23/2024 5:45 PM EST [facility] Urine Urine specimen collection, clean catch / Unknown Non-Blood Collection / Unknown 12/23/2024 3:24 PM EST 12/23/2024 5:00 PM EST Heidi Camacho MD LAB URINE ORDERABLES Final Result Performing Organization Address [facility]/ZIP Co de Phone Number [facility] [address] [place] [phone], * (ABNORMAL) Vitamin D, 25-Hydroxy, Total, Immunoassay (12/23/2024 3:24 PM EST) Calcidiol+ercalc idiol 21(L) 30 - 100 ng/mL 12/24/2024 8:10 AM EST [facility] Comment: Vitamin D Status ? 25-OH Vitamin D: Deficiency: ?<20 ng/mL Insufficiency: ? 20 - 29 ng/mL Optimal: ? > or = 30 ng/mL For 25-OH Vitamin D testing on patients on D2-supplementation and patients for whom quantitation of D2 and D3 fractions is required, the QuestAssureD(TM) 25-OH VIT D, (D2,D3), LC/MS/MS is recommended: order code 90365 (patients >2yrs). See Note 1 Note 1 For additional information, please refer to http://education.BrainCells.Kelkoo/faq/RAN676 (This link is being provided for informational/ educational purposes only.) Blood Structure of peripheral vein / Unknown Venipuncture / Unknown 12/23/2024 3:24 PM EST 12/23/2024 3:43 PM EST Narrative [facility] - 12/24/2024 8:10 AM EST [facility] Received Date:[id number] Heidi Camacho MD LAB BLOOD ORDERABLES Final Result Performing Organization Address City/[facility]/ZIP Co de Phone Number [facility]AMADARIA[facility] [address] [facility] 3[address], [place] [address], [place] [phone] [facility] [address] [facility] 3rd [address], [place] [address], [place] [phone] * Sedimentation Rate (12/23/2024 3:24 PM EST) Pathologist [facility] Sed Rate 12 <20 mm/Hr mm/Hr 12/23/2024 3:55 PM EST [facility] Blood Structure of peripheral vein / Unknown Venipuncture / Unknown 12/23/2024 3:24 PM EST 12/23/2024 3:43 PM EST Heidi Camacho MD LAB BLOOD ORDERABLES Final Result [facility] [address] [place] [address], [place] * Rheumatoid Factor (12/23/2024 3:24 PM EST) Pathologist [facility] Rheumatoid Factor <10 <14 IU/mL 12/24/2024 8:29 AM EST [facility] Blood Structure of peripheral vein / Unknown Venipuncture / Unknown 12/23/2024 3:24 PM EST 12/23/2024 3:43 PM EST Narrative [facility] - 12/24/2024 8:29 AM EST [facility] Received Date:[id number] Heidi Camacho MD LAB BLOOD ORDERABLES Final Result [facility] [address] [facility] [address], [place] [address], [place] [phone] [facility] [address] [facility] [address], [place] [address], [place] [phone] * Complement C3 (12/23/2024 3:24 PM EST) Pathologist [facility] Complement Component C3C 119 91 - 193 mg/dL 12/24/2024 8:29 AM EST [facility] Blood Structure of peripheral vein / Unknown Venipuncture / Unknown 12/23/2024 3:24 PM EST 12/23/2024 3:43 PM EST Narrative [facility] - 12/24/2024 8:29 AM EST [facility] Received Date:[id number] us Heidi Camacho MD LAB BLOOD ORDERABLES Final Result [facility] [place] [address], [place] [address], [place] [phone] [facility] [address], [place] [address], [place] [phone] * Complement C4 (12/23/2024 3:24 PM EST) Complement Component C4C 22 15 - 57 mg/dL 12/24/2024 8:29 AM EST [facility] Blood Structure of peripheral vein / Unknown Venipuncture / Unknown 12/23/2024 3:24 PM EST 12/23/2024 3:43 PM EST Narrative [facility] - 12/24/2024 8:29 AM EST [facility] Received Date:[id number] us Heidi Camacho MD LAB BLOOD ORDERABLES Final Result [facility] [address], [place] [address], [place] [phone] [facility] [address], [place] [address], [place] [phone] * C-Reactive Protein (12/23/2024 3:24 PM EST) C Reactive Protein 9.3 <=9.9 mg/L 12/23/2024 4:22 PM EST [facility] Blood Structure of peripheral vein / Unknown Venipuncture / Unknown 12/23/2024 3:24 PM EST 12/23/2024 3:43 PM EST us Heidi Camacho MD LAB BLOOD ORDERABLES Final Result [facility] [address] [place] [address], * (ABNORMAL) Comprehensive Metabolic Panel (12/23/2024 3:24 PM EST) NA 137 135 - 145 mmol/L 12/23/2024 4:22 PM EST [facility] K 3.9 3.5 - 5.3 mmol/L 12/23/2024 4:22 PM EST [facility] Cl 102 98 - 107 mmol/L 12/23/2024 4:22 PM EST [facility] CO2 23 22 - 32 mmol/L 12/23/2024 4:22 PM EST [facility] Anion Gap 12 5 - 15 12/23/2024 4:22 PM EST [facility] Glucose 84 65 - 99 mg/dL 12/23/2024 4:22 PM EST [facility] Creatinine 0.68 0.50 - 1.20 mg/dL 12/23/2024 4:22 PM EST [facility] Calcium 8.7 8.6 - 10.5 mg/dL 12/23/2024 4:22 PM EST [facility] Total Protein 7.3 6.0 - 8.0 g/dL 12/23/2024 4:22 PM EST [facility] Albumin 4.1 3.5 - 5.2 g/dL 12/23/2024 4:22 PM EST [facility] Bilirubin, Total 0.3 0.2 - 1.2 mg/dL 12/23/2024 4:22 PM EST [facility] Alkaline Phosphatase 91 35 - 129 U/L 12/23/2024 4:22 PM EST [facility] AST 32 10 - 40 U/L 12/23/2024 4:22 PM EST [facility] ALT 34 10 - 40 U/L 12/23/2024 4:22 PM EST [facility] BUN 10 7 - 23 mg/dL 12/23/2024 4:22 PM EST [facility] eGFR >90 >=60 mL/min/1. 73m2 12/23/2024 4:22 PM EST [facility] Comment:The estimated glomer ular filtration rate (eGFR) is calculated using a new formula developed by the NKF-ASN task force to eliminate race-based correction factors. The new formula uses serum/plasma creatinine, age, and gender to determine eGFR. A value below 60mls/min might indicate kidney disease and will be flagged. For additional information, see Cervantes et al, Am J Kidney Dis. 2021;79(2):268- 288, A Unifying Approach for GFR estimation: Recommendations of the NKF-ASN Task Force on Reassessing the Inclusion of Race in Diagnosing Kidney Disease . Globulin, Total 3.2 2.1 - 4.2 g/dL 12/23/2024 4:22 PM EST [facility] A/G Ratio 1.3(L) 1.5 - 3.0 12/23/2024 4:22 PM EST [facility] Blood Structure of peripheral vein / Unknown Venipuncture / Unknown 12/23/2024 3:24 PM EST 12/23/2024 3:43 PM EST us Heidi Camacho MD LAB BLOOD ORDERABLES Final Result [facility] [address] [place] [address], [place] * XR Foot 3+ vw Right (12/23/2024 3:21 PM EST) Anatomical Region Laterality Modality Lower Extremities, Foot Right Computed Radiography 12/23/2024 4:19 PM EST Impressions 12/23/2024 4:22 PM EST Bilateral feet x-rays AP lateral and oblique views. Mild osteopenia. Mild hallux valgus and minimal degenerative changes of some of the IP joints. Bilaterally no erosions suggestive of inflammatory arthropathy. No old or recent fractures dislocations or other changes. Bilateral hand x-rays AP lateral and oblique views. Bilaterally all the joints within the wrist and the hand are normal except very mild degenerative changes of the DIP joints bilaterally. No erosions suggestive of inflammatory arthropathy or inflammatory osteoarthritis. No old or recent fractures dislocations If this radiology report contains a blank impression section, it is an incomplete radiology report. ??Please contact the interpreting radiologist or applicable radiology division as soon as possible to obtain the completed interpretation. ? Workstation ID: [id number] Narrative 12/23/2024 4:22 PM EST COMPARISON: ??There are no prior studies available for comparison at this time. ?? FINDINGS AND Resulting Agency Comment [id number] Procedure Note Tess Walsh MD - 12/23/2024 COMPARISON: There are no prior studies available for comparison at thistime. FINDINGS AND IMPRESSION: Bilateral feet x-rays AP lateral and oblique views. Mild osteopenia. Mild hallux valgus and minimal degenerative changes ofsome of the IP joints. Bilaterally no erosions suggestive of inflammatory arthropathy. No old orrecent fractures dislocations or other changes. Bilateral hand x-rays AP lateral and oblique views. Bilaterally all the joints within the wrist and the hand are normal exceptvery mild degenerative changes of the DIP joints bilaterally. No erosions suggestive of inflammatory arthropathy or inflammatoryosteoarthritis. No old or recent fractures dislocations If this radiology report contains a blank impression section, it is anincomplete radiology report. Please contact the interpreting radiologistor applicable radiology division as soon as possible to obtain thecompleted interpretation. Workstation ID: [id number] Heidi Camacho MD IMG XR PROCEDURES Fin al Result * XR Foot 3+ vw Left (12/23/2024 3:21 PM EST) Anatomical Region Laterality Modality Lower Extremities, Foot Left Computed Radiography 12/23/2024 4:19 PM EST Impressions 12/23/2024 4:22 PM EST Bilateral feet x-rays AP lateral and oblique views. Mild osteopenia. Mild hallux valgus and minimal degenerative changes of some of the IP joints. Bilaterally no erosions suggestive of inflammatory arthropathy. No old or recent fractures dislocations or other changes. Bilateral hand x-rays AP lateral and oblique views. Bilaterally all the joints within the wrist and the hand are normal except very mild degenerative changes of the DIP joints bilaterally. No erosions suggestive of inflammatory arthropathy or inflammatory osteoarthritis. No old or recent fractures dislocations If this radiology report contains a blank impression section, it is an incomplete radiology report. ??Please contact the interpreting radiologist or applicable radiology division as soon as possible to obtain the completed interpretation. ? Workstation ID: [id number] Narrative 12/23/2024 4:22 PM EST COMPARISON: ??There are no prior studies available for comparison at this time. ?? FINDINGS AND Resulting Agency Comment [id number] Procedure Note Tess Walsh MD - 12/23/2024 COMPARISON: There are no prior studies available for comparison at thistime. FINDINGS AND IMPRESSION: Bilateral feet x-rays AP lateral and oblique views. Mild osteopenia. Mild hallux valgus and minimal degenerative changes ofsome of the IP joints. Bilaterally no erosions suggestive of inflammatory arthropathy. No old orrecent fractures dislocations or other changes. Bilateral hand x-rays AP lateral and oblique views. Bilaterally all the joints within the wrist and the hand are normal exceptvery mild degenerative changes of the DIP joints bilaterally. No erosions suggestive of inflammatory arthropathy or inflammatoryosteoarthritis. No old or recent fractures dislocations If this radiology report contains a blank impression section, it is anincomplete radiology report. Please contact the interpreting radiologistor applicable radiology division as soon as possible to obtain thecompleted interpretation. Workstation ID: [id number] us Heidi Camacho MD IMG XR PROCEDURES Fin al Result * XR Hand 3+ vw Right (12/23/2024 3:21 PM EST) Anatomical Region Laterality Modality Upper Extremities, Hand Right Computed Radiography 12/23/2024 4:19 PM EST Impressions 12/23/2024 4:22 PM EST Bilateral feet x-rays AP lateral and oblique views. Mild osteopenia. Mild hallux valgus and minimal degenerative changes of some of the IP joints. Bilaterally no erosions suggestive of inflammatory arthropathy. No old or recent fractures dislocations or other changes. Bilateral hand x-rays AP lateral and oblique views. Bilaterally all the joints within the wrist and the hand are normal except very mild degenerative changes of the DIP joints bilaterally. No erosions suggestive of inflammatory arthropathy or inflammatory osteoarthritis. No old or recent fractures dislocations If this radiology report contains a blank impression section, it is an incomplete radiology report. ??Please contact the interpreting radiologist or applicable radiology division as soon as possible to obtain the completed interpretation. ? Workstation ID: [id number] Narrative 12/23/2024 4:22 PM EST COMPARISON: ??There are no prior studies available for comparison at this time. ?? FINDINGS AND Resulting Agency Comment [id number] Procedure Note Tess Walsh MD - 12/23/2024 COMPARISON: There are no prior studies available for comparison at thistime. FINDINGS AND IMPRESSION: Bilateral feet x-rays AP lateral and oblique views. Mild osteopenia. Mild hallux valgus and minimal degenerative changes ofsome of the IP joints. Bilaterally no erosions suggestive of inflammatory arthropathy. No old orrecent fractures dislocations or other changes. Bilateral hand x-rays AP lateral and oblique views. Bilaterally all the joints within the wrist and the hand are normal exceptvery mild degenerative changes of the DIP joints bilaterally. No erosions suggestive of inflammatory arthropathy or inflammatoryosteoarthritis. No old or recent fractures dislocations If this radiology report contains a blank impression section, it is anincomplete radiology report. Please contact the interpreting radiologistor applicable radiology division as soon as possible to obtain thecompleted interpretation. Workstation ID: [id number] us Heidi Camacho MD IMG XR PROCEDURES Fin al Result * XR Hand 3+ vw Left (12/23/2024 3:21 PM EST) Anatomical Region Laterality Modality Upper Extremities, Hand Left Computed Radiography 12/23/2024 4:19 PM EST Impressions 12/23/2024 4:22 PM EST Bilateral feet x-rays AP lateral and oblique views. Mild osteopenia. Mild hallux valgus and minimal degenerative changes of some of the IP joints. Bilaterally no erosions suggestive of inflammatory arthropathy. No old or recent fractures dislocations or other changes. Bilateral hand x-rays AP lateral and oblique views. Bilaterally all the joints within the wrist and the hand are normal except very mild degenerative changes of the DIP joints bilaterally. No erosions suggestive of inflammatory arthropathy or inflammatory osteoarthritis. No old or recent fractures dislocations If this radiology report contains a blank impression section, it is an incomplete radiology report. ??Please contact the interpreting radiologist or applicable radiology division as soon as possible to obtain the completed interpretation. ? Workstation ID: [id number] Narrative 12/23/2024 4:22 PM EST COMPARISON: ??There are no prior studies available for comparison at this time. ?? FINDINGS AND Resulting Agency Comment [id number] Procedure Note Tess Walsh MD - 12/23/2024 COMPARISON: There are no prior studies available for comparison at thistime. FINDINGS AND IMPRESSION: Bilateral feet x-rays AP lateral and oblique views. Mild osteopenia. Mild hallux valgus and minimal degenerative changes ofsome of the IP joints. Bilaterally no erosions suggestive of inflammatory arthropathy. No old orrecent fractures dislocations or other changes. Bilateral hand x-rays AP lateral and oblique views. Bilaterally all the joints within the wrist and the hand are normal exceptvery mild degenerative changes of the DIP joints bilaterally. No erosions suggestive of inflammatory arthropathy or inflammatoryosteoarthritis. No old or recent fractures dislocations If this radiology report contains a blank impression section, it is anincomplete radiology report. Please contact the interpreting radiologistor applicable radiology division as soon as possible to obtain thecompleted interpretation. Workstation ID: [id number] us Heidi Camacho MD IMG XR PROCEDURES Fin al Result from Last 3 Months Insurance [facility] HSNO/FREE CARE Care Teams Show Host Or Hostess Relationship Specialty Start Date End Date [address] [address] PCP - General 10/21/24
--- OUTSIDE RECORDS SUMMARY | 2025-02-18 11:37 | XMS_ITS | Encounter Summary ---
Author Organization [employer] Address [address] [place] [address] Care Team Providers Care Recreation Director Name Role Phone Chayito Holman DO Primary Care Provider [phone] Encounter Details Date Type Department Care Team (Latest Contact Info) Description 02/18/2025 Travel Social History Tobacco Use Types Packs/Day Years Used Date Smoking Tobacco: Never Passive Smoke Exposure: Never Smokeless Tobacco: Never Alcohol Use Standard Drinks/Week Comments Not Currently [...] the past 12 months, has t he electric, gas, oil or water company threatened to [...] Orientation Straight 02/23/2024 9: 15 AM EDT documented as of this encounter Plan of Treatment Not on file documented as of this encounter Visit Diagnoses Not on filedocumented in this encounter Additional Health Concerns Assessment Noted Time PHQ-9 Depression Total Score: 10 025 11:25 AM EST documented as of this encounter Care Teams Recreation Director Relationship Specialty Start Date End Date Chayito Holman DO [address] [place] [address] PCP - General Family Medicine 11/19/24 documented as of this encounter
--- OUTSIDE RECORDS SUMMARY | 2025-02-18 11:37 | XMS_ITS | Clinical Summary ---
Author Organization [facility] Address [address] [place] [address] Phone Care Team Providers Care Texture Artist Name Role Phone Chayito Holman DO Primary Care Provider [phone] Encounters Date Type Department Care Team Description 12/03/2024 3:57 PM EST - 12/03/2024 11:59 PM EST Hospital Encounter [facility] at [address] [id number] Encounter for screening mammogram for malignant neoplasm of breast Discharge Disposition: Home or Self Care from Last 3 Months Social History Tobacco Use Types Packs/Day Years Used Date Smoking Tobacco: Never Assessed Comments No Sex and Gender Information Value Date Recorded Sex Assigned at Female 11/21/2024 11:03 AM EST Legal Sex Female 8:19 PM EST Gender Identity Female 11/21/2024 11:03 AM EST Sexual Orientation Straight 11/27/2024 11 :14 AM EST Obstetrics History Para Term AB IAB SAB Ectopic Multiple Livin g Live Births 2 Plan of Treatment Health Maintenance Due Date Last Done Comments Cervical Cancer Screening: P ap Smear 1998 Colorectal Cancer Screening: Colonoscopy 11/16/2023 Social Influencers of Health Screening 11/16/2023 COVID-19 Vaccine (1 - 2023-2 5 season) 2024 Hepatitis B Vaccines (2 of 3 - 19+ 3-dose series) 12/16/2024 11/18/2024 Influenza Vaccine (Season Ended) 2025 Depression Screening 11/18/2025 11/18/2024 Breast Cancer Screening 12/03/2026 12/03/2024 Cholesterol Screening (Lipid Panel) 10/17/2029 10/17/2024 DTaP,Tdap,and Td Vaccines (2 - Td or Tdap) 11/18/2034 11/18/2024 HIV Screening Completed 10/17/2024 Hepatitis C Screening [...] on patient's age to complete this topic MMR Vaccines Aged Out No longer eligi ble based on patient's age to complete this topic Meningococcal ACWY Vaccine Aged Out N o longer eligible based on patient's age to complete this topic Meningococcal B Vaccine Aged Out No l onger eligible based on patient's age to complete this topic Pneumococcal Vaccine: Pediat rics (0 to 5 Years) and At-Risk Patients (6 to 64 Years) Aged Out No longer eligi ble based on patient's age to complete this topic RSV Immunization Patients Un juan alberto 20 months Aged Out No longer eligible b ased on patient's age to complete this topic Varicella Vaccines Aged Out No longer eligible based on patient's age to complete this topic Procedures Procedure Name Priority Date/Time Associated Diagnosis Comments MG MAMMO DIGITAL SCREENING W NILO BILAT Routine 12/03/2024 4:13 PM EST Encounter for screening mammogram for malignant neoplasm of breast from Last 3 Months Results * MG Mammo Digital Screening w Nilo bilat (12/03/2024 4:13 PM EST) Anatomical Region Laterality Modality Breast Bilateral Mammography 12/04/2024 8:23 AM EST Impressions 12/04/2024 9:19 AM EST No mammographic evidence of malignancy. BI-RADS: ??Category 1: Negative RECOMMENDATION(S): 1: Routine screening mammogram BILATERAL in 1 year. -------- FINAL REPORT -------- Dictated By: FRANCO MCKEON Dictated Date: 12/04/2024 08:23 ET Assigned Physician: FRANCO MCKEON Reviewed and Electronically Signed By: FRANCO MCKEON Signed Date: 12/04/2024 09:19 ET Workstation ID: [id number] Transcribed By: Self Edit Transcribed Date: 12/04/2024 08:32 ET Narrative 12/04/2024 9:19 AM EST EXAM: MG MAMMO DIGITAL SCREENING W NILO BILAT EXAM DATE AND TIME: 12/03/2024 3:59 PM HISTORY: ??Screening COMPARISON: ??Patient's previous mammograms are in located in [place] and not available. ??This is considered a new baseline examination. TECHNIQUE: Bilateral digital breast tomosynthesis was performed in the CC and MLO projections. Computer aided detection with iCAD ProFound AI 3D 3.1 was employed. TISSUE DENSITY: c. The breasts are heterogeneously dense, which may obscure small masses. FINDINGS: No suspicious masses, grouped microcalcifications, or areas of architectural distortion are seen. The skin and vascularity are unremarkable. Procedure Note Franco Mckeon MD - 12/04/2024 EXAM: MAMMO DIGITAL SCREENING W NILO BILAT EXAM DATE AND TIME: 12/03/2024 3:59 PM HISTORY: Screening COMPARISON: Patient's previous mammograms are in located in [place] andnot available. This is considered a new baseline examination. TECHNIQUE: Bilateral digital breast tomosynthesis was performed in the CCand MLO projections. Computer aided detection with iCAD ProFound AI 3D 3.1was employed. TISSUE DENSITY: c. The breasts are heterogeneously dense, which mayobscure small masses. FINDINGS: No suspicious masses, grouped microcalcifications, or areas ofarchitectural distortion are seen. The skin and vascularity areunremarkable. IMPRESSION: No mammographic evidence of malignancy. BI-RADS: Category 1: Negative RECOMMENDATION(S): 1: Routine screening mammogram BILATERAL in 1 year. -------- FINAL REPORT -------- Dictated By: FRANCO MCKEON Dictated Date: 12/04/2024 08:23 ET Assigned Physician: FRANCO MCKEON Reviewed and Electronically Signed By: FRANCO MCKEON Signed Date: 12/04/2024 09:19 ET Workstation ID: [id number] Transcribed By: Self Edit Transcribed Date: 12/04/2024 08:32 ET Chayito Holman DO IMG BI PROCEDURES Final Re sult from Last 3 Months Insurance MEDICAID - [place] Care Teams Texture Artist Relationship Specialty Start Date End Date Chayito Holman DO [address] [place] [address] PCP - General Family Medicine 11/27/24
--- OUTSIDE RECORDS SUMMARY | 2025-02-18 11:37 | XMS_ITS | Referral Summary ---
Author Organization [facility] Address [address] [place] [address] Care Team Providers Care Hot Wort Settler Name Role Phone [facility] Primary Care Provider [phone] Encounters Date Type Department Care Team Description 12/25/2024 Results Follow-Up [facility] [address] [place] [address] Compressor Mechanic: Heidi Rawls MD 12/23/2024 3:00 PM EST - 12/23/2024 11:59 PM EST Hospital Encounter [facility] XRay [address] [place] [address] Heidi Jenkins MD Arthralgia of multiple sites Discharge Disposition: Home or Self Care () 12/23/2024 2:40 PM EST Office Visit [facility] [address] [place] [address] Compressor Mechanic: Heidi Rawls MD Systemic lupus erythematosus with other organ involvement, unspecified SLE type (Primary Dx); Bilateral hand pain; Arthralgia of multiple sites; Language barrier from Last 3 Months Allergies No known active allergies Medications acetaminophen (TYLENOL) 650 mg 8 hr tablet Take 650 mg by mouth every 8 hours as needed. 5 Active diclofenac (VOLTAREN) 1% gel Apply 2 g topically to the affected area 4 times daily as needed. Active FLUoxetine (PROzac) 10 mg tablet Take [...] of multiple sites 12/23/2024 Language barrier 12/23/2024 Social History Tobacco Use Types Packs/Day Years [...] Description 07/11/2025 11:20 AM EDT Office Visit [facility] [address] [place] [address] Compressor Mechanic: Heidi Naik MD [address] [place] [address] Procedures * Due to [place] state law, this organization might not be [...] IFA W/RFX TO TTR/PAT, SYSTEMIC AUTOIMMUNE PANEL [id number] Routine 12/23/2024 3:24 PM EST Systemic lupus [...] Last 3 Months Results * Due to [place] state law, this organization might not be sharing negative HIV tests. * Mcknight Top, Urine (12/23/2024 3:24 PM EST) Extra Tube Hold for add-ons. 12/23/2024 8:05 PM EST [facility] Comment:Auto resulted. Urine Urine specimen collection, clean catch / Unknown Non-Blood Collection / Unknown 12/23/2024 3:24 PM EST 12/23/2024 5:00 PM EST us Heidi Camacho MD LAB URINE ORDERABLES Final Result Performing Organization Address City/State/[facility] Co de Phone Number [facility] [address] [place] [address], * (ABNORMAL) LUIS A, Titer and Pattern (12/23/2024 3:24 PM EST) LUIS A Titer 1 1:160(H) titer 01/01/2025 1:18 PM EDT [facility] Comment: Reference Ranges for Anti-Nuclear Ab Titer: ?? <1:40 ?Negative ?? 1:40-1:80 ??Low Antibody Level ?? >1:80 ?Elevated Antibody Level LUIS A Pattern 1 NUCLEAR, HOMOGENEOUS 01/01/2025 1:18 PM EDT [facility] Comment: Homogeneous pattern is associated with systemic lupus erythematosus (SLE), drug-induced lupus and juvenile idiopathic arthritis. AC-1: Homogeneous International Consensus on LUIS A Patterns https://doi.org/10.1515/jzxg-7630-6026 Blood Structure of peripheral vein / Unknown Venipuncture / Unknown 12/23/2024 3:24 PM EST 12/23/2024 3:43 PM EST Narrative [facility] - 01/01/2025 1:18 PM EDT [facility] Received Date: Heidi Camacho MD LAB BLOOD ORDERABLES Final Result [facility] [address] [place] [address], [place] [phone] * (ABNORMAL) ANAlyzeR LUIS A, IFA w/Rfx Ttr/Pat, Systemic Autoimmune Panel 1 (includes LUIS A, IFA w/Rfx, DNA (ds) w/Rfx to Ttr, Chromatin, Sm, SM/MARINE ELECTRICIAN APPRENTICE, MARINE ELECTRICIAN APPRENTICE, SSA, SSB, Scl70, Jo1, CENPB, C3c, C4c, CardiolipinIgA/G/M, B2-GPI IgA/G/M, RF IgA/G/M, CCP IgG, MCV Ab (12/23/2024 3:24 PM EST) LUIS A Screen, IFA POSITIVE(A) NEGATIVE 01/02/20 1:18 PM EDT [facility]/ [employer] [facility] Comment: LUIS A IFA is a first line screen for detecting the presence of up to approximately 150 autoantibodies in various autoimmune diseases. A positive LUIS A IFA result is suggestive of autoimmune disease and reflexes to titer and pattern. Further laboratory testing may be considered if clinically indicated. For additional information, please refer to http://education.Promoboxx.Animated Speech/faq/WWU550 (This link is being provided for informational/educational purposes only.) DNA Ab(ds) Crithidia, IFA NEGATIVE NEGATIVE 01/01/2025 1:18 PM EDT [facility]/ [employer] [facility] Chromatin Antibody <1.0 NEG <1.0 NEGATIVE AI 01/01/2025 1:18 PM EDT [facility] Sm Antibody <1.0 NEG <1.0 NEGATIVE AI 01/01/2025 1:18 PM EDT [facility] SM/MARINE ELECTRICIAN APPRENTICE Antibody <1.0 NEG <1.0 NEGATIVE AI 01/01/2025 1:18 PM EDT [facility] MARINE ELECTRICIAN APPRENTICE Antibody 1.0 POS(A) <1.0 NEGATIVE AI 01/01/2025 1:18 PM EDT [facility] Sjogren's Ab (SS-A) 1.3 POS(A) <1.0 NEGATIVE AI 01/01/2025 1:18 PM EDT [facility] Sjogren's Ab (SS-B) <1.0 NEG <1.0 NEGATIVE AI 01/01/2025 1:18 PM EDT [facility] SCL-70 Antibody <1.0 NEG <1.0 NEGATIVE AI 01/01/2025 1:18 PM EDT [facility] JENNIFER-1 Antibody <1.0 NEG <1.0 NEGATIVE AI 01/01/2025 1:18 PM EDT [facility] Centromere B Antibody <1.0 NEG <1.0 NEGATIVE AI 01/01/2025 1:18 PM EDT [facility] Complement Component C3C 124 83 - 193 mg/dL 01/01/2025 1:18 PM EDT [facility] Complement Component C4C 23 15 - 57 mg/dL 01/01/2025 1:18 PM EDT [facility] Cardiolipin Ab IgA 6.7 APL-U/mL 2024 1:18 PM EDT [facility] Comment: Value ?Interpretation ----- ? <20.0 ?Antibody not detected > or = 20.0 ??Antibody detected Cardiolipin Ab IgG <2.0 GPL-U/mL 2024 1:18 PM EDT [facility]/ [facility]AN [place] Comment: Value ?Interpretation ----- ? <20.0 ?Antibody not detected > or = 20.0 ??Antibody detected Cardiolipin Ab IgM <2.0 MPL-U/mL 2024 1:18 PM EDT [employer]/ [facility] Comment: Value ?Interpretation ----- ? <20.0 ?Antibody not detected > or = 20.0 ??Antibody detected Beta2-Glycoprotein I (IgA) 9.1 U/mL 01/01/2025 1:18 PM EDT [employer]/ [facility] Comment: Value ?Interpretation ----- ? <20.0 ?Antibody not detected > or = 20.0 ??Antibody detected Beta2-Glycoprotein I (IgG) 2.6 U/mL 01/01/2025 1:18 PM EDT [employer]/ [facility] Comment: Value ?Interpretation ----- ? <20.0 ?Antibody not detected > or = 20.0 ??Antibody detected Beta2-Glycoprotein I (IgM) <2.0 U/mL 01/01/2025 1:18 PM EDT new test company [facility]/ [facility] Comment: The antiphospholipid antibody syndrome (APS) is [...] aging. For additional information, please refer to http://Restoration Robotics.Xi3/faq/ZVG969 (This link is being provided for informational/educational purposes only.) Value ?Interpretation ----- ? <20.0 ?Antibody not detected > or = 20.0 ??Antibody detected Rheumatoid Factor IgA <5 U 01/01/2025 1:18 PM EDT [employer]/ [employer] [facility] Comment: ?Reference Range: ?<=6 ??NEGATIVE ?>6 ?? POSITIVE Rheumatoid Factor IgG <5 U 01/01/2025 1:18 PM EDT [employer]/ [employer] [facility] Comment: ?Reference Range: ?<=6 ??NEGATIVE ?>6 ?? POSITIVE Rheumatoid Factor IgM <5 U 01/01/2025 1:18 PM EDT [employer]/ [employer] [facility] Comment: ?Reference Range: ?<=6 NEGATIVE ?>6 ??POSITIVE Cyclic Citrullinated Peptide (CCP) Ab (IgG) <16 Units 01/01/2025 1:18 PM EDT [facility]/ [facility] Comment: ?Reference Range: ?NEGATIVE: ? <20 ?WEAK POSITIVE: ? 20-39 ?MODERATE POSITIVE: ? 40-59 ?STRONG POSITIVE ? >59 Mutated Citrullinated Vimentin (MCV) Ab <20 <20 U/mL 01/01/2025 1:18 PM EDT [employer]/ [facility] Comment: Anti-mutated citrullinated vimentin antibody may be used as a second-line marker of rheumatoid arthritis, in addition to rheumatoid factor and anti-cyclic citrullinated peptide (CCP). Thyroid Peroxidase Antibodies <1 <9 IU/mL 01/01/2025 1:18 PM EDT [employer]/ [facility] Blood Structure of peripheral vein / Unknown Venipuncture / Unknown 12/23/2024 3:24 PM EST 12/23/2024 3:43 PM EST Narrative [facility] 01/01/2025 1:18 PM EDT [facility] Received Date: Heidi Camacho MD LAB BLOOD ORDERABLES Final Result [facility] [address] Floor, [place] [address], [place] [phone] [employer]/[place] [id number] [place] [address], [place] [phone] * Urinalysis W/Reflex to Microscopic & Culture (12/23/2024 3:24 PM EST) Color, Urine Yellow Colorless, Light Yellow, Yellow, Dark Yellow 12/23/2024 5:12 PM EST [facility] Clarity, Urine Clear Clear 12/23/2024 5:12 PM EST [facility] Specific [place], Urine 1.017 1.005 - 1.030 12/23/2024 5:12 PM EST [facility] pH, Urine 6.0 4.6 - 8.0 12/23/2024 5:12 PM EST [facility] Protein, Urine Negative Negative 12/23/2024 5:12 PM EST [facility] Glucose, Urine Negative Negative 12/23/2024 5:12 PM EST [facility] Ketones, Urine Negative Negative 12/23/2024 5:12 PM EST [facility] Bilirubin, Urine Negative Negative 12/23/2024 5:12 PM EST [facility] Blood, Urine Negative Negative 12/23/2024 5:12 PM EST [facility] Nitrite, Urine Negative Negative 12/23/2024 5:12 PM EST [facility] Urobilinogen, Urine Normal Normal 12/23/2024 5:12 PM EST [facility] Leukocyte Esterase, Urine Negative Negative 12/23/2024 5:12 PM EST [facility] Urine Urine specimen collection, clean catch / Unknown Non-Blood Collection / Unknown 12/23/2024 3:24 PM EST 12/23/2024 5:00 PM EST Heidi Camacho MD LAB URINE ORDERABLES Final Result [facility] [address] [place] [address], * DNA Antibody (ds) Crithidia IFA w/Reflex (12/23/2024 3:24 PM EST) DNA Ab(ds) Crithidia, IFA Negative Negative 12/27/2024 11:55 AM EST [facility] ([facility]) Blood Structure of peripheral vein / Unknown Venipuncture / Unknown 12/23/2024 3:24 PM EST 12/23/2024 3:43 PM EST Narrative [facility] - 12/27/2024 11:55 AM EST [facility] Received Date:[id number] Heidi Camacho MD LAB BLOOD ORDERABLES Final Result [facility] [address], [place] [address], [facility] AGUAYO ([place]) [address] [place] [address], [place] * (ABNORMAL) SSA & SSB (SJOGREN'S) Antibodies (12/23/2024 3:24 PM EST) Sjogren's Ab (SS-A) 1.5 POS(A) <1.0 NEG AI 12/24/2024 1:58 PM EST [facility] Sjogren's Ab (SS-B) <1.0 NEG <1.0 NEG AI 12/24/2024 1:58 PM EST [facility] Blood Structure of peripheral vein / Unknown Venipuncture / Unknown 12/23/2024 3:24 PM EST 12/23/2024 3:43 PM EST Narrative [facility] - 12/24/2024 1:58 PM EST [facility] Received Date: Heidi Camacho MD LAB BLOOD ORDERABLES Final Result [facility] [address], [place] [address], [place] [phone] [facility] [address], [place] [address], [place] [phone] * Protein Electrophoresis w/Reflex to Immunofixation, Serum (12/23/2024 3:24 PM EST) Protein, Total 7.1 6.1 - 8.1 g/dL 12/24/2024 10:13 PM EST [employer] [facility] Albumin 4.2 3.8 - 4.8 g/dL 12/24/2024 10:13 PM EST [employer] [facility] Alpha 1 Globulin 0.3 0.2 - 0.3 g/dL 12/24/2024 10:13 PM EST [employer] [facility] Alpha 2 Globulin 0.8 0.5 - 0.9 g/dL 12/24/2024 10:13 PM EST [employer] [facility] Beta 1 Globulin 0.4 0.4 - 0.6 g/dL 12/24/2024 10:13 PM EST [employer] [facility] Beta 2 Globulin 0.4 0.2 - 0.5 g/dL 12/24/2024 10:13 PM EST [employer] [facility] Gamma Globulin 1.1 0.8 - 1.7 g/dL 12/24/2024 10:13 PM EST [employer] [facility] Interpretation See Comments 12/24/2024 10:13 PM EST [employer] [facility] Comment: Normal Serum Protein Electrophoresis Pattern. No abnormal protein bands (M-protein) detected. Blood Structure of peripheral vein / Unknown Venipuncture / Unknown 12/23/2024 3:24 PM EST 12/23/2024 3:43 PM EST [facility] 12/24/2024 10:13 PM EST [facility] Received Date: Heidi Camacho MD LAB BLOOD ORDERABLES Final Result [facility] [address] [facility] [address], [place] [address], [place] [phone] [employer] [facility] [address] [facility] [address], [place] [address], * TSH Reflex Free T4 (12/23/2024 3:24 PM EST) TSH 2.980 0.280 - 3.890 uIU/mL 12/23/2024 4:22 PM EST [facility] Comment: Females: 1st trimester ? 0.150-4.000 ??IU/mL 2nd trimester ?? 0.310-4.170 ?IU/mL 3rd trimester ?0.380-4.150 ?IU/mL Blood Structure of peripheral vein / Unknown Venipuncture / Unknown 12/23/2024 3:24 PM EST 12/23/2024 3:43 PM EST us Heidi Camacho MD LAB BLOOD ORDERABLES Final Result [facility] [address] [place] [address], [place] * (ABNORMAL) CBC Auto Differential (12/23/2024 3:24 PM EST) WBC 8.1 3.8 - 10.8 10*3/uL 12/23/2024 3:53 PM EST [facility] RBC 4.74 3.80 - 5.10 10*6/uL 12/23/2024 3:53 PM EST [facility] Hemoglobin 14.6 11.7 - 15.5 g/dL 12/23/2024 3:53 PM EST [facility] Hematocrit 43.0 35.0 - 45.0 % 12/23/2024 3:53 PM EST [facility] MCV 90.7 80.0 - 100.0 fL 12/23/2024 3:53 PM EST [facility] MCH 30.8 27.0 - 33.0 pg 12/23/2024 3:53 PM EST [facility] MCHC 34.0 32.0 - 36.0 g/dL 12/23/2024 3:53 PM EST [facility] RDW 12.3 11.0 - 15.0 % 12/23/2024 3:53 PM EST [facility] Platelets 212 140 - 400 10*3/uL 12/23/2024 3:53 PM EST [facility] MPV 10.6 7.5 - 12.5 fL 12/23/2024 3:53 PM EST [facility] Neutrophil % 58.3 % 12/23/2024 3:53 PM EST [facility] Immature Grans % 0.5 0.0 - 0.9 % 12/23/2024 3:53 PM EST [facility] Lymphocyte % 27.6 % 12/23/2024 3:53 PM [facility] Monocyte % 11.4 % 12/23/2024 3:53 PM EST [facility] Eosinophil % 2.0 % 12/23/2024 3:53 PM EST [facility] Basophil % 0.2 % 12/23/2024 3:53 PM [facility] Neutrophil # 4.70 1.50 - 7.80 10*3/uL 12/23/2024 3:53 PM [facility] Immature Grans # 0.04(H) <=0.03 10*3/uL 12/23/2024 3:53 PM [facility] Lymphocyte # 2.20 0.85 - 3.90 10*3/uL 12/23/2024 3:53 PM EST [facility] Monocyte # 0.90 0.20 - 0.95 10*3/uL 12/23/2024 3:53 PM [facility] Eosinophil # 0.20 0.02 - 0.50 10*3/uL 12/23/2024 3:53 PM [facility] Basophil # <0.03 0.00 - 0.20 10*3/uL 12/23/2024 3:53 PM [facility] nRBC % 0.0 /100 WBCs 12/23/2024 3:53 PM [facility] nRBC # <0.01 <0.01 10*3/uL 12/23/2024 3:53 PM [facility] Blood Structure of peripheral vein / Unknown Venipuncture / Unknown 12/23/2024 3:24 PM EST 12/23/2024 3:43 PM EST Heidi Camacho MD LAB BLOOD ORDERABLES Final Result Performing Organization Address City/[facility] Co de Phone Number [facility] [address] [place] [address], * Cyclic Citrullinated Peptide (CCP) Antibody, IgG (12/23/2024 3:24 PM EST) Cyclic Citrullinated Peptide (CCP) Ab (IgG) <16 UNITS 12/24/2024 8:58 PM EST [facility] Comment: Reference Range Negative: ?<20 Weak Positive: ? 20-39 Moderate Positive: ?? 40-59 Strong Positive: ? >59 Blood Structure of peripheral vein / Unknown Venipuncture / Unknown 12/23/2024 3:24 PM EST 12/23/2024 3:43 PM EST Narrative [facility] 12/24/2024 8:58 PM EST [facility] Received Date: Heidi Camacho MD LAB BLOOD ORDERABLES Final Result Performing Organization Address City/[facility] Co de Phone Number [facility] [place] [address] [facility] [address], [place] [address], [place] [phone] [employer] [facility] [address] [facility] [address], [place] [address], [place] [phone] * Microalbumin, Random Urine with Creatinine (12/23/2024 3:24 PM EST) Microalbumin, Urine <2.0 mg/dL 12/23/2024 6:34 PM EST [email or web address] Creatinine, Urine 82 15 - 278 mg/dL 12/23/2024 6:34 PM EST [email or web address] Microalb/Creat Ratio, Random Urine 12/23/2024 6:34 PM EST [email or web address] Comment: < 1.0 mcg/mgCr [...] URINE ORDERABLES Final Result Performing Organization Address [facility] Co de Phone Number [email or web address] [address] [place] [address], * DNA Antibody, Double-Stranded (12/23/2024 3:24 PM EST) DNA (Ds) Antibody 1 IU/mL 025 2:01 PM EST [facility] Comment: ? IU/mL ? Interpretation ? < or = 4 ?Negative ? 5-9 ? Indeterminate ? > or = 10 ?? Positive Blood Structure of peripheral vein / Unknown Venipuncture / Unknown 12/23/2024 3:24 PM EST 12/23/2024 3:43 PM EST Narrative [facility] 12/24/2024 2:01 PM EST [facility] Received Date:[id number] us Heidi Camacho MD LAB BLOOD ORDERABLES Final Result Performing Organization Address [facility] Co de Phone Number [facility] [address] [place] [address] Floor, [place] [address], [place] [phone] [employer] [facility] [address], [place] [address], [place] [phone] * Protein, Random Urine with Creatinine (12/23/2024 3:24 PM EST) Protein, Urine 10 mg/dL 12/23/2024 5:45 PM EST [facility] Creatinine, Urine 85 15 - 278 mg/dL 12/23/2024 5:45 PM EST [facility] Protein/Creati nine, Urine Ratio 118 <200 mg/gmCr 12/23/2024 5:45 PM EST [facility] Urine Urine specimen collection, clean catch / Unknown Non-Blood Collection / Unknown 12/23/2024 3:24 PM EST 12/23/2024 5:00 PM EST Heidi Camacho MD LAB URINE ORDERABLES Final Result [facility] [address] [place] [address], * (ABNORMAL) Vitamin D, 25-Hydroxy, Total, Immunoassay (12/23/2024 3:24 PM EST) Calcidiol+ercalc idiol 21(L) 30 - 100 ng/mL 12/24/2024 8:10 AM EST [facility] Comment: Vitamin D Status ? 25-OH Vitamin D: Deficiency: ?<20 ng/mL Insufficiency: ? 20 - 29 ng/mL Optimal: ? > or = 30 ng/mL For 25-OH Vitamin D testing on patients on D2-supplementation and patients for whom quantitation of D2 and D3 fractions is required, the QuestAssureD() 25-OH VIT D, (D2,D3), LC/MS/MS is recommended: order code [id number] (patients >2yrs). See Note 1 Note 1 For additional information, please refer to http://education.Mine/faq/MQF560 (This link is being provided for informational/ educational purposes only.) Blood Structure of peripheral vein / Unknown Venipuncture / Unknown 12/23/2024 3:24 PM EST 12/23/2024 3:43 PM EST Narrative [facility] [place] - 12/24/2024 8:10 AM EST [facility] Received Date:[id number] Heidi Camacho MD LAB BLOOD ORDERABLES Final Result [address], [place] [address], [employer] [address], [place] [address], [place] [phone] * Sedimentation Rate (12/23/2024 3:24 PM EST) Pathologist [facility] Sed Rate 12 <20 mm/Hr mm/Hr 12/23/2024 3:55 PM EST [facility] Blood Structure of peripheral vein / Unknown Venipuncture / Unknown 12/23/2024 3:24 PM EST 12/23/2024 3:43 PM EST Heidi Camahco MD LAB BLOOD ORDERABLES Final Result [facility] [address] [place] [address], * Rheumatoid Factor (12/23/2024 3:24 PM EST) Rheumatoid Factor <10 <14 IU/mL 12/24/2024 8:29 AM EST [employer] [facility] Blood Structure of peripheral vein / Unknown Venipuncture / Unknown 12/23/2024 3:24 PM EST 12/23/2024 3:43 PM EST Narrative [facility] - 12/24/2024 8:29 AM EST [facility] Received Date:[id number] us Heidi Camacho MD LAB BLOOD ORDERABLES Final Result Performing Organization Address City/[facility]/ZIP Co de Phone Number Y[facility] VILLARREAL [address], [place] [address], [place] [phone] [facility] [address], [place] [address], [place] [phone] * Complement C3 (12/23/2024 3:24 PM EST) Complement Component C3C 119 83 - 193 mg/dL 12/24/2024 8:29 AM EST [facility] Blood Structure of peripheral vein / Unknown Venipuncture / Unknown 12/23/2024 3:24 PM EST 12/23/2024 3:43 PM EST Narrative new test [facility] 12/24/2024 8:29 AM EST [facility] Received Date:[id number] us Heidi Camacho MD LAB BLOOD ORDERABLES Final Result Performing Organization Address City/[facility]/ZIP Co de Phone Number YI VILL[facility] [address], [place] [address], [place] [phone] [employer] [employer] [facility] [address], [place] [address], [place] [phone] * Complement C4 (12/23/2024 3:24 PM EST) Complement Component C4C 22 15 - 57 mg/dL 12/24/2024 8:29 AM EST [employer] [facility] Blood Structure of peripheral vein / Unknown Venipuncture / Unknown 12/23/2024 3:24 PM EST 12/23/2024 3:43 PM EST Narrative [facility] - 12/24/2024 8:29 AM EST [facility] Received Date:[id number] Heidi Camacho MD LAB BLOOD ORDERABLES Final Result [facility] [address] [facility] [address], [place] [address], [place] [phone] [employer] [facility] [address] [facility] [address], [place] [address], [place] [phone] * C-Reactive Protein (12/23/2024 3:24 PM EST) C Reactive Protein 9.3 <=9.9 mg/L 12/23/2024 4:22 PM EST [facility] Blood Structure of peripheral vein / Unknown Venipuncture / Unknown 12/23/2024 3:24 PM EST 12/23/2024 3:43 PM EST Heidi Camacho MD LAB BLOOD ORDERABLES Final Result [facility] [address] [place] [address], * (ABNORMAL) Comprehensive Metabolic Panel (12/23/2024 3:24 PM EST) NA 137 135 - 145 mmol/L 12/23/2024 4:22 PM EST [facility] K 3.9 3.5 - 5.3 mmol/L 12/23/2024 4:22 PM EST [facility] Cl 102 98 - 107 mmol/L 12/23/2024 4:22 PM EST [facility] CO2 23 22 - 32 mmol/L 12/23/2024 4:22 PM EST [facility] Anion Gap 12 5 - 15 12/23/2024 4:22 PM EST [facility] Glucose 84 65 - 99 mg/dL 12/23/2024 4:22 PM [facility] Creatinine 0.68 0.50 - 1.20 mg/dL 12/23/2024 4:22 PM [facility] Calcium 8.7 8.6 - 10.5 mg/dL 12/23/2024 4:22 PM [facility] Total Protein 7.3 6.0 - 8.0 g/dL 12/23/2024 4:22 PM [facility] Albumin 4.1 3.5 - 5.2 g/dL 12/23/2024 4:22 PM [facility] Bilirubin, Total 0.3 0.2 - 1.2 mg/dL 12/23/2024 4:22 PM [facility] Alkaline Phosphatase 91 35 - 129 U/L 12/23/2024 4:22 PM [facility] AST 32 10 - 40 U/L 12/23/2024 4:22 PM [facility] ALT 34 10 - 40 U/L 12/23/2024 4:22 PM [facility] BUN 10 7 - 23 mg/dL 12/23/2024 4:22 PM [facility] eGFR >90 >=60 mL/min/1. 73m2 12/23/2024 4:22 PM [facility] Comment:The estimated glomer ular filtration rate (eGFR) is calculated using a new formula developed by the NKF-ASN task force to eliminate race-based correction factors. The new formula uses serum/plasma creatinine, age, and gender to determine eGFR. A value below 60mls/min might indicate kidney disease and will be flagged. For additional information, see Billy purcell al, Am J Kidney Dis. 2021;79(2):268- 288, A Unifying Approach for GFR estimation: Recommendations of the NKF-ASN Task Force on Reassessing the Inclusion of Race in Diagnosing Kidney Disease . Globulin, Total 3.2 2.1 - 4.2 g/dL 12/23/2024 4:22 PM EST [facility] A/G Ratio 1.3(L) 1.5 - 3.0 12/23/2024 4:22 PM EST [facility] Blood Structure of peripheral vein / Unknown Venipuncture / Unknown 12/23/2024 3:24 PM EST 12/23/2024 3:43 PM EST us Heidi Camacho MD LAB BLOOD ORDERABLES Final Result [facility] [address] [place] [address], [place] * XR Foot 3+ vw Right [...] obtain the completed interpretation. ? Workstation ID: [id number] Narrative 12/23/2024 4:22 PM EST COMPARISON: ??There are no prior studies available for comparison at this time. ?? FINDINGS AND Resulting Agency Comment [id number] Procedure Note Tess Walsh MD - 12/23/2024 [...] possible to obtain thecompleted interpretation. Workstation ID: [id number] us Heidi Camacho MD IMG XR PROCEDURES [...] obtain the completed interpretation. ? Workstation ID: [id number] Narrative 12/23/2024 4:22 PM EST COMPARISON: ??There are no prior studies available for comparison at this time. ?? FINDINGS AND Resulting Agency Comment [id number] Procedure Note Tess Walsh MD - 12/23/2024 [...] possible to obtain thecompleted interpretation. Workstation ID: [id number] us Heidi Camacho MD IMG XR PROCEDURES [...] obtain the completed interpretation. ? Workstation ID: [id number] Narrative 12/23/2024 4:22 PM EST COMPARISON: ??There are no prior studies available for comparison at this time. ?? FINDINGS AND Resulting Agency Comment [id number] Procedure Note Tess Walsh MD - 12/23/2024 [...] possible to obtain thecompleted interpretation. Workstation ID: [id number] Heidi Camacho MD IMG XR PROCEDURES Fin [...] obtain the completed interpretation. ? Workstation ID: [id number] Narrative 12/23/2024 4:22 PM EST COMPARISON: ??There are no prior studies available for comparison at this time. ?? FINDINGS AND Resulting Agency Comment [id number] Procedure Note Tess Walsh MD - 12/23/2024 [...] possible to obtain thecompleted interpretation. Workstation ID: [id number] Heidi Camacho MD IMG XR PROCEDURES Fin al Result from Last 3 Months Insurance [facility] [id number] [facility] Care Teams Hot Wort Settler Relationship Specialty Start Date End Date [address] [address] PCP - General 10/21/24
--- OUTSIDE RECORDS SUMMARY | 2025-02-18 11:37 | XMS_ITS | Encounter Summary ---
Author Organization [employer] Address [address] [facility] 7t [place] [address] Care Team Providers Care Cnc Operator Name Role Phone Chayito Holman DO Primary Care Provider +[phone] Reason for Visit * Reason Onset Date Comments Returning Call 10/15/2024 Encounter Details Date Type Department Care Team ([facility] Contact Info) Description 10/15/2024 Telephone [facility] [address] [place], [place] [phone] Shakeel Rouse MD [address] [place], [place] [phone] Returning Call Social History Tobacco Use Types Packs/Day Years Used Date Smoking Tobacco: Never Passive Smoke Exposure: Never Smokeless Tobacco: Never Alcohol Use Standard Drinks/Week Comments Not Currently 0 (1 standard drink = 0.6 oz pur e alcohol) Comments No Sex and Gender Information Value Date Recorded Sex Assigned at Female 02/23/2024 9:15 AM EDT Legal Sex Female 9:10 AM EDT Gender Identity Female 02/23/2024 9:15 AM EDT Sexual Orientation Straight 02/23/2024 9: 15 AM EDT documented as of this encounter Miscellaneous Notes * Telephone Encounter - Homer Arsenio - 10/15/2024 10:53 AM EST Tc from pt stating she received a call but unsure it was from. Certified Residential Medication Aide did not see any documentation. documented in this encounter Plan of Treatment Not on file documented as of this encounter Visit Diagnoses Not on filedocumented in this encounter Care Teams Cnc Operator Relationship Specialty Start Date End Date Chayito Holman DO [address] [place] [address] PCP - General Family Medicine 11/19/24 documented as of this encounter
--- OUTSIDE RECORDS SUMMARY | 2025-02-18 11:37 | XMS_ITS | Encounter Summary ---
Author Organization [employer] Address [address] [place] [address] Care Team Providers Care Auditor In Charge Name Role Phone Chayito Holman DO Primary Care Provider + [phone] Reason for Visit * Reason Comments Gynecologic Exam Encounter Details Date Type Department Care Team (Latest Contact Info) Description 02/18/2025 9:15 AM EDT Office Visit [facility] [address] [place], [place] [phone] Neetu Strickland CN [address] [place] [address] Cervical cancer screening (Primary Dx); Encounter for surveillance of contraceptive pills; Amenorrhea; Environmental allergies Social History Tobacco Use Types Packs/Day Years [...] AM EDT documented as of this encounter Last Filed Vital Signs Vital Sign Reading [...] Mass Index 34.67 02/18/2025 9:31 AM EDT documented in this encounter Progress Notes * Neetu Strickland CNM - 02/18/2025 9:15 AM EDT Subjective Patient ID: Francesca Moulton is a 49 y.o. female who presents for oral contraceptive pill f/u Rx'd NET progestin only pill at 07/2024 visit with me. Due for pap, which she would like to do today. SLE, saw rheumatology but notes worsening edema. Also notes itchy eyes, sneezing due to environmental allergies. Would like medication to help with this. LMP sometime last month, largely amenorrheic otherwise with oral contraceptive pill. Notes missed/late pills and occasional bilateral breast tenderness. Happy with oral contraceptive pill otherwise. 1 residential AMAB partner who would like to have children. Francesca is aware of low likelihood of at her age as well as high risk for complications. She does not want to be . Hormonal testing ordered by Dr. Leija. Reviewed she may get these done, but hard to interpret while on oral contraceptive pill. Denies vasomotor symptoms, no vaginal symptoms. Mammogram BIRADS 1, cat c 11/2024. Review of Systems HENT: Positive for rhinorrhea and sneezing. Genitourinary: Negative for dyspareunia, dysuria, frequency, genital sores, hematuria, menstrual problem, pelvic pain, urgency, vaginal bleeding, vaginal discharge and vaginal pain. No abnormal pap, no abnormal bleeding, no breast pain, no breast mass, no nipple discharge Objective BP (!) 144/83 (BP Location: Left arm, Patient Position: Sitting, BP Cuff Size: Large adult) Pulse86 Temp 97.8 ??F (36.6 ??C) (Temporal) Resp 16 Ht 5' 4 (1.626 m) Wt 202 lb (91.6 kg) LMP/ (Approximate) SpO2 99% BMI 34.67 kg/m?? Physical Exam Constitutional: Appearance: Normal appearance. Chest: Breasts: Right: Normal. No swelling, bleeding, inverted nipple, mass, nipple discharge, skin change or tenderness. Left: Normal. No swelling, bleeding, inverted nipple, mass, nipple discharge, skin change or tenderness. Genitourinary: General: Normal vulva. Labia: Right: No rash, tenderness, lesion or injury. Left: No rash, tenderness, lesion or injury. Vagina: Normal. No signs of injury and foreign body. No vaginal discharge, erythema, tenderness, bleeding or lesions. Cervix: No cervical motion tenderness, discharge, friability, lesion, erythema, cervical bleeding or eversion. Uterus: Normal. Not enlarged and not tender. Adnexa: Right adnexa normal and left adnexa normal. Right: No mass, tenderness or fullness. Left: No mass, tenderness or fullness. Musculoskeletal: Right lower leg: Edema present. Left lower leg: Edema present. Lymphadenopathy: Upper Body: Right upper body: No supraclavicular or axillary adenopathy. Left upper body: No supraclavicular or axillary adenopathy. Neurological: Mental Status: She is alert. Psychiatric: Mood and Affect: Mood normal. Behavior: Behavior normal. Assessment/Plan Diagnoses and all orders for this visit: Cervical cancer screening - Pap Smear Cotest 5 years if normal/HPV negative. If on immunosuppressants for SLE, will need more frequent screening. Encounter for surveillance of contraceptive pills Happy with progestin only pill. Reviewed decreased efficacy with missed/late NET pills. Let's switch to Slynd. Reviewed side effects and danger signs. Normal to not have menses while on this pill, aslong as ruled out. Amenorrhea - hCG, Total, Quantitative; Future Will get previously ordered hormonal tests, understands results may be affected by oral contraceptive pill use. Will check hcg as precaution. Unable to urinate, will add to serum labs. Environmental allergies Trial of Zyrtec, 90 d supply sent in. Followup with PCP if not helpful. Advised followup with PCP for edema, seek care urgently if symptoms worsen. Keep followup with rheum as well. Other orders - Drospirenone (Slynd) 4 MG tablet; Take 1 tablet by mouth Once per day. - cetirizine (ZyrTEC) 10 MG tablet; Take 1 tablet (10 mg) by mouth Once per day. documented in this encounter Plan of Treatment Scheduled Orders Name Type Priority Associated Diagnoses Order Schedule Pap Smear Pathology and Cytology Routine Cervical cancer screening Ordered: 02/18/2025 hCG, Total, Quantitative Lab Routine Amenorrhea Expected: 02/18/2025 (Approximate), Expires: 02/18/2026 documented as of this encounter Visit Diagnoses Diagnosis Cervical cancer screening- Primary Screening for malignant neoplasm of the cervix Encounter for surveillance of contraceptive pills Amenorrhea Absence of menstruation Environmental allergies Other allergy, other than to medicinal agents documented in this encounter Additional Health Concerns Assessment Noted Time PHQ-9 Depression Total Score: 10 025 11:25 AM EST documented as of this encounter Care Teams Auditor In Charge Relationship Specialty Start Date End Date Chayito Holman DO [address] [place] [phone] PCP - General Family Medicine 11/19/24 documented as of this encounter
--- OUTSIDE RECORDS SUMMARY | 2025-02-18 11:37 | XMS_ITS | Encounter Summary ---
Author Organization [facility] Address [address] [place] [address] Care Team Providers Care Svp Group Director Name Role Phone [facility] Primary Care Provider [phone] Encounter Details Date Type Department Care Team ([facility] Contact Info) Description 12/25/2024 Results Follow-Up [facility] [address] [place] [phone] Student Worker: Heidi Naik MD [address] [place] [phone] Social History Tobacco Use Types Packs/Day Years Used Date Smoking Tobacco: Former Cigarettes Passive Smoke Exposure: Past Smokeless Tobacco: Never Alcohol Use Standard Drinks/Week Comments Yes 0 (1 standard drink = 0.6 oz pur e alcohol) Comments Unknown Sex and Gender Information Value Date Recorded Sex Assigned at Female 10/21/2024 10:58 AM EST Legal Sex Female 10:55 AM EST Gender Identity Female 10/21/2024 10:58 AM EST Sexual Orientation Not on file documented as of this encounter Plan of Treatment Upcoming Encounters Date Type Department Care Team ([facility] Contact Info) Description 07/11/2025 11:20 AM EDT Office Visit [facility] [address] [place] [phone] Student Worker: Heidi Naik MD [address] [place] [phone] documented as of this encounter Visit Diagnoses Not on filedocumented in this encounter Care Teams Svp Group Director Relationship Specialty Start Date End Date [address] [phone] PCP - General 10/21/24 documented as of this encounter
[2025-02-18 12:04] LABS: HCG Quantitative < 2 mIU/mL
== END 2025-02-18 10:11 | disposition home or self-care (01) ==
LOC: HO.HHCL 10:10
PROVIDERS: Advanced Practice Midwife; Visit Provider Internal Medicine
DX: N91.2 Amenorrhea, unspecified (principal)
CPT/HCPCS: 36415; 84702

== ENCOUNTER 2025-02-18 16:22 | Outpatient (REF) | payer MEDICAID, SELFPAY ==
--- OUTSIDE RECORDS SUMMARY | 2025-02-18 18:29 | XMS_ITS | Encounter Summary ---
Author Organization [employer] Address [address] 7[address] [place] [address] Care Team Providers Care Toll Collector Supervisor Name Role Phone Chayito Holman DO Primary Care Provider + [phone] Reason for Visit * Reason Comments Gynecologic Exam Encounter Details Date Type Department Care Team (Latest Contact Info) Description 02/18/2025 9:15 AM EDT Office Visit [facility] [address] [place], [place] [phone] Neetu Strickland CN [address] [place] [address] Cervical cancer screening (Primary Dx); Encounter for [...] Happy with oral contraceptive pill otherwise. 1 correction AMAB partner who would like to have [...] Scheduled Orders Name Type Priority Associated Diagnoses Orde r Schedule Pap Smear Pathology and Cytology Routine Cervical cancer screening Ordered: 02/18/2025 documented as of this encounter Procedures Procedure Name Priority Date/Time Associated Diagnosis Comments HCG, TOTAL, QN Routine 02/18/2025 10:11 AM EDT Amenorrhea documented in this encounter Results * hCG, Total, Quantitative (02/18/2025 10:11 AM EDT) HCG Quantitative <2 mIU/mL [facility] Comment:Weeks post LMP Appro ximate hCG(Last Menstrual Period) Range (mIU/ml)3 - 4 weeks 9 - 1304 - 5 weeks 75 - 2,6005 - 6 weeks 850 - 20,8006 - 7 weeks 4000 - 100,2007 - 12 weeks 11,500 - 289,98817 - 16 weeks 18,300 - 137,03822 - 29 weeks (2nd trimester) 1,400 - 53,80245 - 41 weeks (3rd trimester) 940 - 60,000The [place] B- hCG assay is used for the early detection ofpregnancy; it cannot be used to diagnose any conditionunrelated to . If a B-hCG level is not supportedby the clinical evidence, results should be confirmed by analternative method (qualitative urine hCG, for example). Blood Venous blood specimen / Unknown 02/18/2025 10:11 AM EDT 02/18/2025 11:17 AM EDT us Neetu Strickland CNM LAB BLOOD ORDERABLES Varsha brice Result [facility] [address] [place] [phone] documented in this encounter Visit Diagnoses Diagnosis Cervical cancer screening- Primary Screening for malignant neoplasm of the cervix Encounter for surveillance of contraceptive pills Amenorrhea Absence of menstruation Environmental allergies Other allergy, other than to medicinal agents documented in this encounter Additional Health Concerns Assessment Noted Time PHQ-9 Depression Total Score: 10 025 11:25 AM EST documented as of this encounter Care Teams Toll Collector Supervisor Relationship Specialty Start Date End Date Chayito Holman DO [address] [place] [phone] PCP - General Family Medicine 11/19/24 documented as of this encounter
--- OUTSIDE RECORDS SUMMARY | 2025-02-18 18:29 | XMS_ITS | Encounter Summary ---
Author Organization [employer] Address [address] [place] [address] Care Team Providers Care Hospital Receiving Clerk Name Role Phone Chayito Holman DO Primary Care Provider +1 [phone] Encounter Details Date Type Department Care Team [...] documented as of this encounter Care Teams Hospital Receiving Clerk Relationship Specialty Start Date End Date Chayito Holman DO [address] [place] [address] PCP - General Family Medicine 11/19/24 documented as of this encounter
--- OUTSIDE RECORDS SUMMARY | 2025-02-18 18:30 | XMS_ITS | Encounter Summary ---
Author Organization [employer] Address [address] [facility] 7t [place] [address] Care Team Providers Care Licensed Midwife Name Role Phone Chayito Holman DO Primary Care Provider [phone] Reason for Visit * Reason Onset Date Comments Returning Call 10/15/2024 Encounter Details Date Type Department Care Team ([facility] Contact Info) Description 10/15/2024 Telephone [facility] [address] [place], [place] [phone] Shakeel Rouse MD [address] [place], [place] [phone] Returning Call Social History Tobacco Use Types [...] a call but unsure it was from. Animal Herder did not see any documentation. documented in this encounter Plan of Treatment Not on file documented as of this encounter Visit Diagnoses Not on filedocumented in this encounter Care Teams Licensed Midwife Relationship Specialty Start Date End Date Chayito Holman DO [address] [place] [address] PCP - General Family Medicine 11/19/24 documented as of this encounter
--- OUTSIDE RECORDS SUMMARY | 2025-02-18 18:30 | XMS_ITS | Clinical Summary ---
Author Organization [facility] Address [address] [place] [address] Phone Care Team Providers Care Cementer Hand Name Role Phone Chayito Holman DO Primary Care Provider [phone] Encounters Date Type Department Care Team Description 12/03/2024 3:57 PM EST - 12/03/2024 11:59 PM EST Hospital [facility] [address] [phone] Encounter for screening mammogram for [...] Signed Date: 12/04/2024 09:19 ET Workstation ID: [id number] Transcribed By: Self Edit Transcribed Date: 12/04/2024 08:32 ET Narrative 12/04/2024 9:19 AM EST EXAM: MG MAMMO DIGITAL SCREENING W NILO BILAT EXAM DATE AND TIME: 12/03/2024 3:59 PM HISTORY: ??Screening COMPARISON: ??Patient's previous mammograms are in located in [place] and not available. ??This is considered a [...] Patient's previous mammograms are in located in [place] andnot available. This is considered a new [...] Signed Date: 12/04/2024 09:19 ET Workstation ID: [id number] Transcribed By: Self Edit Transcribed Date: 12/04/2024 08:32 ET Chayito Holman DO IMG BI PROCEDURES Final Re sult from Last 3 Months Insurance MEDICAID - [place] Care Teams Cementer Hand Relationship Specialty Start Date End Date Chayito Holman DO [address] [place] [address] PCP - General Family Medicine 11/27/24
--- OUTSIDE RECORDS SUMMARY | 2025-02-18 18:30 | XMS_ITS | Clinical Summary ---
Author Organization [employer] Address [address] 7[address] [place] [address] Care Team Providers Care Wwe Wrestler Name Role Phone Chayito Holman DO Primary Care Provider +[phone] Allergies No known active allergies Medications * [...] Description 02/18/2025 9:15 AM EDT Office Visit [facility] [address] [place] [phone] Neetu Strickland CNM Cervical cancer screening (Primary Dx); Encounter for surveillance of contraceptive pills; Amenorrhea; Environmental allergies 02/18/2025 Travel 01/07/2025 3:20 PM EDT Office Visit [facility] [address] [place] [address] Susanna Flynn MD Family planning counseling; Encounter [...] the past 12 months, has t he [place], gas, oil or water company threatened to [...] QN Routine 02/18/2025 10:11 AM EDT Amenorrhea HEPATITIS C AB W/REFL TO HCV RNA, [...] Recently Relevant to Health Maintenance Results * hCG, Total, Quantitative (02/18/2025 10:11 AM EDT) HCG Quantitative <2 mIU/mL [facility] Comment:Weeks post LMP Appro ximate hCG(Last Menstrual Period) Range (mIU/ml)3 - 4 weeks 9 - 1304 - 5 weeks 75 - 2,6005 - 6 weeks 850 - 20,8006 - 7 weeks 4000 - 100,2007 - 12 weeks 11,500 - 289,32051 - 16 weeks 18,300 - 137,401[address] - 29 weeks (2nd trimester) 1,400 - 53,08088 - 41 weeks (3rd trimester) 940 - [...] 10:11 AM EDT 02/18/2025 11:17 AM EDT Neetu Strickland [facility] LAB BLOOD ORDERABLES Varsha l Result Performing Organization Address [facility] Co de Phone Number [facility] [address] [place] [phone] * Hepatitis C Antibody with Reflex to HCV, RNA, Quantitative, Real-Time PCR (10/17/2024 3:42 PM EST) Hepatitis C Antibody Nonreactive Nonreactive [facility] Comment:Antibodies to HCV no t detected; does not exclude early acuteHCV infection. Blood Venous blood specimen / Unknown 10/17/2024 3:42 PM EST 10/17/2024 3:56 PM EST Chayito Holman DO LAB BLOOD ORDERABLES Final R esult Performing Organization Address [facility] Co de Phone Number [facility] [address] [place] [phone] * HIV-1/2 Antigen and Antibodies, Fourth Generation, with Reflexes (10/17/2024 3:42 PM EST) HIV AB/AG Nonreactive Nonreactive [facility] Comment:HIV-1 p24 Ag and/or HIV-1/HIV-2 Ab not detected.A test result that is nonreactive does not exclude thepossibility of exposure to or infection with HIV-1 and/orHIV-2. Nonreactive results in this assay for individualswith prior exposure to HIV-1 and/or HIV-2 may be due toantigen and antibody levels that are below the limit ofdetection of this assay.The [employer] HIV Ag/Ab Combo assay result andsupplemental assay results should be interpreted inconjunction with the patient's clinical presentation,history and other laboratory results. If the results areinconsistent with clinical evidence, additional testing issuggested to confirm the result. Blood Venous blood specimen / Unknown 10/17/2024 3:42 PM EST 10/17/2024 3:56 PM EST us Chayito Holman DO LAB BLOOD ORDERABLES Final R esult [facility] [address] [place] [phone] from Last 3 Months or Most Recently Relevant to Health Maintenance Insurance [facility] [employer] Care Teams Wwe Wrestler Relationship Specialty Start Date End Date Chayito Holman DO [address] [place] [phone] PCP - General Family Medicine 11/19/24
--- OUTSIDE RECORDS SUMMARY | 2025-02-18 18:30 | XMS_ITS | Referral Summary ---
Author Organization [facility] Address [address] [place] [address] Care Team Providers Care Search Engine Optimization Specialist Name Role Phone [facility] Primary Care Provider [phone]- [phone] Encounters Date Type Department Care Team Description 12/25/2024 Results Follow-Up [facility] [address] [place] [address] Optoelectronics Engineer: Heidi Rawls MD 12/23/2024 3:00 PM EST - 12/23/2024 11:59 PM EST Hospital Encounter [facility] XRay [address] [place] [address] Heidi Jenkins MD Arthralgia of multiple sites Discharge Disposition: Home or Self Care () 12/23/2024 2:40 PM EST Office Visit [facility] [address] [place] [address] Optoelectronics Engineer: Heidi Rawls MD Systemic lupus erythematosus with [...] Description 07/11/2025 11:20 AM EDT Office Visit [facility] [address] [place] [address] Optoelectronics Engineer: Heidi Naik MD [address] [place] [address] Procedures * Due to [place] state law, this organization might not be [...] IFA W/RFX TO TTR/PAT, SYSTEMIC AUTOIMMUNE PANEL [id number] Routine 12/23/2024 3:24 PM EST Systemic lupus [...] Last 3 Months Results * Due to [place] state law, this organization might not be sharing negative HIV tests. * Mcknight Top, Urine (12/23/2024 3:24 PM EST) Extra Tube Hold for add-ons. 12/23/2024 8:05 PM EST [facility] Comment:Auto resulted. Urine Urine specimen collection, clean catch / Unknown Non-Blood Collection / Unknown 12/23/2024 3:24 PM EST 12/23/2024 5:00 PM EST us Heidi Camacho MD LAB URINE ORDERABLES Final Result Performing Organization Address City/State/[facility] Co de Phone Number [facility] [address] [place] [address], * (ABNORMAL) LUIS A, Titer and Pattern (12/23/2024 3:24 PM EST) LUIS A Titer 1 1:160(H) titer 01/01/2025 1:18 PM EDT [facility] Comment: Reference Ranges for Anti-Nuclear Ab Titer: ?? <1:40 ?Negative ?? 1:40-1:80 ??Low Antibody Level ?? >1:80 ?Elevated Antibody Level LUIS A Pattern 1 NUCLEAR, HOMOGENEOUS 01/01/2025 1:18 PM EDT [facility] Comment: Homogeneous pattern is associated with systemic lupus erythematosus (SLE), drug-induced lupus and juvenile idiopathic arthritis. AC-1: Homogeneous International Consensus on LUIS A Patterns https://doi.org/10.1515/gfpe-9015-7901 Blood Structure of peripheral vein / Unknown Venipuncture / Unknown 12/23/2024 3:24 PM EST 12/23/2024 3:43 PM EST Narrative [facility] - 01/01/2025 1:18 PM EDT [facility] Received Date: Heidi Camacho MD LAB BLOOD ORDERABLES Final Result [facility] [address] [place] [address], [place] [phone] * (ABNORMAL) ANAlyzeR LUIS A, IFA w/Rfx Ttr/Pat, Systemic Autoimmune Panel 1 (includes LUIS A, IFA w/Rfx, DNA (ds) w/Rfx to Ttr, Chromatin, Sm, SM/ECHOCARDIOLOGIST, ECHOCARDIOLOGIST, SSA, SSB, Scl70, Jo1, CENPB, C3c, C4c, CardiolipinIgA/G/M, B2-GPI IgA/G/M, RF IgA/G/M, CCP IgG, MCV Ab (12/23/2024 3:24 PM EST) LUIS A Screen, IFA POSITIVE(A) NEGATIVE 01/02/20 1:18 PM EDT [facility]/ [employer] [facility] Comment: LUIS A IFA is a first line screen for detecting the presence of up to approximately 150 autoantibodies in various autoimmune diseases. A positive LUIS A IFA result is suggestive of autoimmune disease and reflexes to titer and pattern. Further laboratory testing may be considered if clinically indicated. For additional information, please refer to http://education.Anexon.2 Minutes/faq/XQY956 (This link is being provided for informational/educational purposes only.) DNA Ab(ds) Crithidia, IFA NEGATIVE NEGATIVE 01/01/2025 1:18 PM EDT [facility]/ [employer] [facility] Chromatin Antibody <1.0 NEG <1.0 NEGATIVE AI 01/01/2025 1:18 PM EDT [facility]/ [facility] Sm Antibody <1.0 NEG <1.0 NEGATIVE AI 01/01/2025 1:18 PM EDT [facility] SM/ECHOCARDIOLOGIST Antibody <1.0 NEG <1.0 NEGATIVE AI 01/01/2025 1:18 PM EDT [facility] ECHOCARDIOLOGIST Antibody 1.0 POS(A) <1.0 NEGATIVE AI 01/01/2025 1:18 PM EDT [facility]/ [facility] [place] Sjogren's Ab (SS-A) 1.3 POS(A) <1.0 NEGATIVE AI 01/01/2025 1:18 PM EDT [facility]/ [facility] [place] Sjogren's Ab (SS-B) <1.0 NEG <1.0 NEGATIVE AI 01/01/2025 1:18 PM EDT [facility] [place] SCL-70 Antibody <1.0 NEG <1.0 NEGATIVE AI 01/01/2025 1:18 PM EDT [facility] [place] JENNIFER-1 Antibody <1.0 NEG <1.0 NEGATIVE AI 01/01/2025 1:18 PM EDT [facility] [place] Centromere B Antibody <1.0 NEG <1.0 NEGATIVE AI 01/01/2025 1:18 PM EDT [facility] [place] Complement Component C3C 124 83 - 193 mg/dL 01/01/2025 1:18 PM EDT [facility] Complement Component C4C 23 15 - 57 mg/dL 01/01/2025 1:18 PM EDT [facility] [place] Cardiolipin Ab IgA 6.7 APL-U/mL 2024 1:18 PM EDT [facility] [place] Comment: Value ?Interpretation ----- ? <20.0 ?Antibody not detected > or = 20.0 ??Antibody detected Cardiolipin Ab IgG <2.0 GPL-U/mL 2024 1:18 PM EDT [facility]/ [facility] [place] Comment: Value ?Interpretation ----- ? <20.0 ?Antibody not detected > or = 20.0 ??Antibody detected Cardiolipin Ab IgM <2.0 MPL-U/mL 2024 1:18 PM EDT [employer]/ [facility] Comment: Value ?Interpretation ----- ? <20.0 ?Antibody not detected > or = 20.0 ??Antibody detected Beta2-Glycoprotein I (IgA) 9.1 U/mL 01/01/2025 1:18 PM EDT [employer]/ [facility] Comment: Value ?Interpretation ----- ? <20.0 ?Antibody not detected > or = 20.0 ??Antibody detected Beta2-Glycoprotein I (IgG) 2.6 U/mL 01/01/2025 1:18 PM EDT [employer]/ [facility] Comment: Value ?Interpretation ----- ? <20.0 ?Antibody not detected > or = 20.0 ??Antibody detected Beta2-Glycoprotein I (IgM) <2.0 U/mL 01/01/2025 1:18 PM EDT [facility]/ [facility] Comment: The antiphospholipid antibody syndrome (APS) [...] aging. For additional information, please refer to http://Partnerpedia.WHI Solution/faq/COC778 (This link is being provided for informational/educational purposes only.) Value ?Interpretation ----- ? <20.0 ?Antibody not detected > or = 20.0 ??Antibody detected Rheumatoid Factor IgA <5 U 01/01/2025 1:18 PM EDT [employer]/ [employer] [facility] Comment: ?Reference Range: ?<=6 ??NEGATIVE ?>6 ?? POSITIVE Rheumatoid Factor IgG <5 U 01/01/2025 1:18 PM EDT [employer]/ [employer] [facility] Comment: ?Reference Range: ?<=6 ??NEGATIVE ?>6 ?? POSITIVE Rheumatoid Factor IgM <5 U 01/01/2025 1:18 PM EDT [employer]/ [employer] [facility] Comment: ?Reference Range: ?<=6 NEGATIVE ?>6 ??POSITIVE Cyclic Citrullinated Peptide (CCP) Ab (IgG) <16 Units 01/01/2025 1:18 PM EDT [facility]/ [facility] Comment: ?Reference Range: ?NEGATIVE: ? <20 ?WEAK POSITIVE: ? 20-39 ?MODERATE POSITIVE: ? 40-59 ?STRONG POSITIVE ? >59 Mutated Citrullinated Vimentin (MCV) Ab <20 <20 U/mL 01/01/2025 1:18 PM EDT [employer]/ [facility] Comment: Anti-mutated citrullinated vimentin antibody may be used as a second-line marker of rheumatoid arthritis, in addition to rheumatoid factor and anti-cyclic citrullinated peptide (CCP). Thyroid Peroxidase Antibodies <1 <9 IU/mL 01/01/2025 1:18 PM EDT [employer]/ [facility] Blood Structure of peripheral vein / Unknown Venipuncture / Unknown 12/23/2024 3:24 PM EST 12/23/2024 3:43 PM EST Narrative [facility] 01/01/2025 1:18 PM EDT [facility] Received Date: Heidi Camacho MD LAB BLOOD ORDERABLES Final Result [facility] [address] Floor, [place] [address], [place] [phone] [employer]/[place] [id number] [place] [address], [place] [phone] * Urinalysis W/Reflex to Microscopic & Culture (12/23/2024 3:24 PM EST) Color, Urine Yellow Colorless, Light Yellow, Yellow, Dark Yellow 12/23/2024 5:12 PM EST [facility] Clarity, Urine Clear Clear 12/23/2024 5:12 PM EST [facility] Specific [place], Urine 1.017 1.005 - 1.030 12/23/2024 5:12 PM EST [facility] pH, Urine 6.0 4.6 - 8.0 12/23/2024 5:12 PM EST [facility] Protein, Urine Negative Negative 12/23/2024 5:12 PM EST [facility] Glucose, Urine Negative Negative 12/23/2024 5:12 PM EST [facility] Ketones, Urine Negative Negative 12/23/2024 5:12 PM EST [facility] Bilirubin, Urine Negative Negative 12/23/2024 5:12 PM EST [facility] Blood, Urine Negative Negative 12/23/2024 5:12 PM EST [facility] Nitrite, Urine Negative Negative 12/23/2024 5:12 PM EST [facility] Urobilinogen, Urine Normal Normal 12/23/2024 5:12 PM EST [facility] Leukocyte Esterase, Urine Negative Negative 12/23/2024 5:12 PM EST [facility] Urine Urine specimen collection, clean catch / Unknown Non-Blood Collection / Unknown 12/23/2024 3:24 PM EST 12/23/2024 5:00 PM EST Heidi Camacho MD LAB URINE ORDERABLES Final Result [facility] [address] [place] [address], * DNA Antibody (ds) Crithidia IFA w/Reflex (12/23/2024 3:24 PM EST) DNA Ab(ds) Crithidia, IFA Negative Negative 12/27/2024 11:55 AM EST [facility] ([facility]) Blood Structure of peripheral vein / Unknown Venipuncture / Unknown 12/23/2024 3:24 PM EST 12/23/2024 3:43 PM EST Narrative [facility] - 12/27/2024 11:55 AM EST [facility] Received Date:[id number] Heidi Camacho MD LAB BLOOD ORDERABLES Final Result [facility] [address], [place] [address], [facility] ([place]AG[place]) [address] [place] [address], [place] * (ABNORMAL) SSA & SSB (SJOGREN'S) Antibodies (12/23/2024 3:24 PM EST) Sjogren's Ab (SS-A) 1.5 POS(A) <1.0 NEG AI 12/24/2024 1:58 PM EST [employer] [facility] Sjogren's Ab (SS-B) <1.0 NEG <1.0 NEG AI 12/24/2024 1:58 PM EST [employer] [facility] Blood Structure of peripheral vein / Unknown Venipuncture / Unknown 12/23/2024 3:24 PM EST 12/23/2024 3:43 PM EST Narrative [facility] - 12/24/2024 1:58 PM EST [facility] Received Date: Heidi Camacho MD LAB BLOOD ORDERABLES Final Result [facility] [address], [place] [address], [place] [phone] [employer] [facility] [address], [place] [address], [place] [phone] * Protein Electrophoresis w/Reflex to Immunofixation, Serum (12/23/2024 3:24 PM EST) Protein, Total 7.1 6.1 - 8.1 g/dL 12/24/2024 10:13 PM EST [employer] [facility] Albumin 4.2 3.8 - 4.8 g/dL 12/24/2024 10:13 PM EST [employer] [facility] Alpha 1 Globulin 0.3 0.2 - 0.3 g/dL 12/24/2024 10:13 PM EST [employer] [facility] Alpha 2 Globulin 0.8 0.5 - 0.9 g/dL 12/24/2024 10:13 PM EST [employer] [facility] Beta 1 Globulin 0.4 0.4 - 0.6 g/dL 12/24/2024 10:13 PM EST [employer] [facility] Beta 2 Globulin 0.4 0.2 - 0.5 g/dL 12/24/2024 10:13 PM EST [employer] [facility] Gamma Globulin 1.1 0.8 - 1.7 g/dL 12/24/2024 10:13 PM EST [employer] [facility] Interpretation See Comments 12/24/2024 10:13 PM EST [employer] [facility] Comment: Normal Serum Protein Electrophoresis Pattern. No abnormal protein bands (M-protein) detected. Blood Structure of peripheral vein / Unknown Venipuncture / Unknown 12/23/2024 3:24 PM EST 12/23/2024 3:43 PM EST [facility] 12/24/2024 10:13 PM EST [facility] Received Date: Heidi Camacho MD LAB BLOOD ORDERABLES Final Result [facility] [address] [facility] [address]rd Floor, [place] [address], [place] [phone] [employer] [facility] 200 [facility] 3rd Floor, [place] [address], * TSH Reflex Free T4 (12/23/2024 3:24 PM EST) TSH 2.980 0.280 - 3.890 uIU/mL 12/23/2024 4:22 PM EST [facility] Comment: Females: 1st trimester ? 0.150-4.000 ??IU/mL 2nd trimester ?? 0.310-4.170 ?IU/mL 3rd trimester ?0.380-4.150 ?IU/mL Blood Structure of peripheral vein / Unknown Venipuncture / Unknown 12/23/2024 3:24 PM EST 12/23/2024 3:43 PM EST us Heidi Camacho MD LAB BLOOD ORDERABLES Final Result [facility] [address] [place] [address], [place] * (ABNORMAL) CBC Auto Differential (12/23/2024 3:24 PM EST) WBC 8.1 3.8 - 10.8 10*3/uL 12/23/2024 3:53 PM EST [facility] RBC 4.74 3.80 - 5.10 10*6/uL 12/23/2024 3:53 PM EST [facility] Hemoglobin 14.6 11.7 - 15.5 g/dL 12/23/2024 3:53 PM EST [facility] Hematocrit 43.0 35.0 - 45.0 % 12/23/2024 3:53 PM EST [facility] MCV 90.7 80.0 - 100.0 fL 12/23/2024 3:53 PM EST [facility] MCH 30.8 27.0 - 33.0 pg 12/23/2024 3:53 PM EST [facility] MCHC 34.0 32.0 - 36.0 g/dL 12/23/2024 3:53 PM EST [facility] RDW 12.3 11.0 - 15.0 % 12/23/2024 3:53 PM EST [facility] Platelets 212 140 - 400 10*3/uL 12/23/2024 3:53 PM EST [facility] MPV 10.6 7.5 - 12.5 fL 12/23/2024 3:53 PM EST [facility] Neutrophil % 58.3 % 12/23/2024 3:53 PM EST [facility] Immature Grans % 0.5 0.0 - 0.9 % 12/23/2024 3:53 PM EST [facility] Lymphocyte % 27.6 % 12/23/2024 3:53 PM [facility] Monocyte % 11.4 % 12/23/2024 3:53 PM EST [facility] Eosinophil % 2.0 % 12/23/2024 3:53 PM EST [facility] Basophil % 0.2 % 12/23/2024 3:53 PM [facility] Neutrophil # 4.70 1.50 - 7.80 10*3/uL 12/23/2024 3:53 PM [facility] Immature Grans # 0.04(H) <=0.03 10*3/uL 12/23/2024 3:53 PM [facility] Lymphocyte # 2.20 0.85 - 3.90 10*3/uL 12/23/2024 3:53 PM EST [facility] Monocyte # 0.90 0.20 - 0.95 10*3/uL 12/23/2024 3:53 PM [facility] Eosinophil # 0.20 0.02 - 0.50 10*3/uL 12/23/2024 3:53 PM [facility] Basophil # <0.03 0.00 - 0.20 10*3/uL 12/23/2024 3:53 PM [facility] nRBC % 0.0 /100 WBCs 12/23/2024 3:53 PM [facility] nRBC # <0.01 <0.01 10*3/uL 12/23/2024 3:53 PM [facility] Blood Structure of peripheral vein / Unknown Venipuncture / Unknown 12/23/2024 3:24 PM EST 12/23/2024 3:43 PM EST Heidi Camacho MD LAB BLOOD ORDERABLES Final Result Performing Organization Address City/[facility] Co de Phone Number [facility] [address] [place] [address], * Cyclic Citrullinated Peptide (CCP) Antibody, IgG (12/23/2024 3:24 PM EST) Cyclic Citrullinated Peptide (CCP) Ab (IgG) <16 UNITS 12/24/2024 8:58 PM EST [employer] Comment: Reference Range Negative: ?<20 Weak Positive: ? 20-39 Moderate Positive: ?? 40-59 Strong Positive: ? >59 Blood Structure of peripheral vein / Unknown Venipuncture / Unknown 12/23/2024 3:24 PM EST 12/23/2024 3:43 PM EST Narrative [facility] 12/24/2024 8:58 PM EST [facility] Received Date: Heidi Camacho MD LAB BLOOD ORDERABLES Final Result Performing Organization Address City/[facility] Co de Phone Number [facility] [place] [address] [facility] 3rd Floor, [place] [address], [place] [phone] [employer] [facility] 200 [facility] 3rd Floor, [place] [address], [place] [phone] * Microalbumin, Random Urine with Creatinine (12/23/2024 3:24 PM EST) Microalbumin, Urine <2.0 mg/dL 12/23/2024 6:34 PM EST [facility] Creatinine, Urine 82 15 - 278 mg/dL 12/23/2024 6:34 PM EST [facility] Microalb/Creat Ratio, Random Urine 12/23/2024 6:34 PM EST [facility] Comment: < 1.0 mcg/mgCr [...] URINE ORDERABLES Final Result Performing Organization Address [facility] Co de Phone Number [facility] [address] [place] [address], * DNA Antibody, Double-Stranded (12/23/2024 3:24 PM EST) DNA (Ds) Antibody 1 IU/mL 025 2:01 PM EST [employer] Comment: ? IU/mL ? Interpretation ? < or = 4 ?Negative ? 5-9 ? Indeterminate ? > or = 10 ?? Positive Blood Structure of peripheral vein / Unknown Venipuncture / Unknown 12/23/2024 3:24 PM EST 12/23/2024 3:43 PM EST Narrative [facility] 12/24/2024 2:01 PM EST [facility] Received Date:[id number] us Heidi Camacho MD LAB BLOOD ORDERABLES Final Result Performing Organization Address [facility] Co de Phone Number [facility] [address] [place] [address] Floor, [place] [address], [place] [phone] [employer] [facility] [address], [place] [address], [place] [phone] * Protein, Random Urine with Creatinine (12/23/2024 3:24 PM EST) Protein, Urine 10 mg/dL 12/23/2024 5:45 PM EST [facility] Creatinine, Urine 85 15 - 278 mg/dL 12/23/2024 5:45 PM EST [facility] Protein/Creati nine, Urine Ratio 118 <200 mg/gmCr 12/23/2024 5:45 PM EST [facility] Urine Urine specimen collection, clean catch / Unknown Non-Blood Collection / Unknown 12/23/2024 3:24 PM EST 12/23/2024 5:00 PM EST Heidi Camacho MD LAB URINE ORDERABLES Final Result [facility] [address] [place] [address], * (ABNORMAL) Vitamin D, 25-Hydroxy, Total, Immunoassay (12/23/2024 3:24 PM EST) Calcidiol+ercalc idiol 21(L) 30 - 100 ng/mL 12/24/2024 8:10 AM EST [employer] [facility] Comment: Vitamin D Status ? 25-OH Vitamin D: Deficiency: ?<20 ng/mL Insufficiency: ? 20 - 29 ng/mL Optimal: ? > or = 30 ng/mL For 25-OH Vitamin D testing on patients on D2-supplementation and patients for whom quantitation of D2 and D3 fractions is required, the QuestAssureD() 25-OH VIT D, (D2,D3), LC/MS/MS is recommended: order code [id number] (patients >2yrs). See Note 1 Note 1 For additional information, please refer to http://education.Tap2print/faq/WIW522 (This link is being provided for informational/ educational purposes only.) Blood Structure of peripheral vein / Unknown Venipuncture / Unknown 12/23/2024 3:24 PM EST 12/23/2024 3:43 PM EST Narrative [facility] [place] - 12/24/2024 8:10 AM EST [facility] Received Date:[id number] Heidi Camacho MD LAB BLOOD ORDERABLES Final Result [address], [place] [address], [employer] [address], [place] [address], [place] [phone] * Sedimentation Rate (12/23/2024 3:24 PM EST) Pathologist [facility] Sed Rate 12 <20 mm/Hr mm/Hr 12/23/2024 3:55 PM EST [facility] Blood Structure of peripheral vein / Unknown Venipuncture / Unknown 12/23/2024 3:24 PM EST 12/23/2024 3:43 PM EST Heidi Camacho MD LAB BLOOD ORDERABLES Final Result [facility] [address] [place] [address], * Rheumatoid Factor (12/23/2024 3:24 PM EST) Rheumatoid Factor <10 <14 IU/mL 12/24/2024 8:29 AM EST [employer] [facility] Blood Structure of peripheral vein / Unknown Venipuncture / Unknown 12/23/2024 3:24 PM EST 12/23/2024 3:43 PM EST Narrative [facility] - 12/24/2024 8:29 AM EST [facility] Received Date:[id number] us Heidi Camacho MD LAB BLOOD ORDERABLES Final Result Performing Organization Address City/[facility]/ZIP Co de Phone Number [facility]RE[facility] [address], [place] [address], [place] [phone] [facility] [employer] [facility] [address], [place] [address], [place] [phone] * Complement C3 (12/23/2024 3:24 PM EST) Complement Component C3C 119 83 - 193 mg/dL 12/24/2024 8:29 AM EST [employer] [facility] Blood Structure of peripheral vein / Unknown Venipuncture / Unknown 12/23/2024 3:24 PM EST 12/23/2024 3:43 PM EST Narrative [facility] 12/24/2024 8:29 AM EST [facility] Received Date:[id number] us Heidi Camacho MD LAB BLOOD ORDERABLES Final Result Performing Organization Address City/[facility]/ZIP Co de Phone Number [facility]ILL[facility]RE[facility] [address], [place] [address], [place] [phone] [facility] [employer] [facility] [address], [place] [address], [place] [phone] * Complement C4 (12/23/2024 3:24 PM EST) Complement Component C4C 22 15 - 57 mg/dL 12/24/2024 8:29 AM EST [employer] [facility] Blood Structure of peripheral vein / Unknown Venipuncture / Unknown 12/23/2024 3:24 PM EST 12/23/2024 3:43 PM EST Narrative [facility] - 12/24/2024 8:29 AM EST [facility] Received Date:[id number] Heidi Camacho MD LAB BLOOD ORDERABLES Final Result [facility] [address] [facility] [address], [place] [address], [place] [phone] [employer] [facility] [address] [facility] [address], [place] [address], [place] [phone] * C-Reactive Protein (12/23/2024 3:24 PM EST) C Reactive Protein 9.3 <=9.9 mg/L 12/23/2024 4:22 PM EST [facility] Blood Structure of peripheral vein / Unknown Venipuncture / Unknown 12/23/2024 3:24 PM EST 12/23/2024 3:43 PM EST Heidi Camacho MD LAB BLOOD ORDERABLES Final Result [facility] [address] [place] [address], * (ABNORMAL) Comprehensive Metabolic Panel (12/23/2024 3:24 PM EST) NA 137 135 - 145 mmol/L 12/23/2024 4:22 PM EST [facility] K 3.9 3.5 - 5.3 mmol/L 12/23/2024 4:22 PM EST [facility] Cl 102 98 - 107 mmol/L 12/23/2024 4:22 PM EST [facility] CO2 23 22 - 32 mmol/L 12/23/2024 4:22 PM EST [facility] Anion Gap 12 5 - 15 12/23/2024 4:22 PM EST [facility] Glucose 84 65 - 99 mg/dL 12/23/2024 4:22 PM [facility] Creatinine 0.68 0.50 - 1.20 mg/dL 12/23/2024 4:22 PM [facility] Calcium 8.7 8.6 - 10.5 mg/dL 12/23/2024 4:22 PM [facility] Total Protein 7.3 6.0 - 8.0 g/dL 12/23/2024 4:22 PM [facility] Albumin 4.1 3.5 - 5.2 g/dL 12/23/2024 4:22 PM [facility] Bilirubin, Total 0.3 0.2 - 1.2 mg/dL 12/23/2024 4:22 PM [facility] Alkaline Phosphatase 91 35 - 129 U/L 12/23/2024 4:22 PM [facility] AST 32 10 - 40 U/L 12/23/2024 4:22 PM [facility] ALT 34 10 - 40 U/L 12/23/2024 4:22 PM [facility] BUN 10 7 - 23 mg/dL 12/23/2024 4:22 PM [facility] eGFR >90 >=60 mL/min/1. 73m2 12/23/2024 4:22 PM [facility] Comment:The estimated glomer ular [...] - 4.2 g/dL 12/23/2024 4:22 PM EST [facility] A/G Ratio 1.3(L) 1.5 - 3.0 12/23/2024 4:22 PM EST [facility] Blood Structure of peripheral vein / Unknown Venipuncture / Unknown 12/23/2024 3:24 PM EST 12/23/2024 3:43 PM EST us Heidi Camacho MD LAB BLOOD ORDERABLES Final Result [facility] [address] [place] [address], [place] * XR Foot 3+ vw Right [...] obtain the completed interpretation. ? Workstation ID: [id number] Narrative 12/23/2024 4:22 PM EST COMPARISON: ??There are no prior studies available for comparison at this time. ?? FINDINGS AND Resulting Agency Comment [id number] Procedure Note Tess Walsh MD - 12/23/2024 [...] possible to obtain thecompleted interpretation. Workstation ID: [id number] us Heidi Camacho MD IMG XR PROCEDURES [...] obtain the completed interpretation. ? Workstation ID: [id number] Narrative 12/23/2024 4:22 PM EST COMPARISON: ??There are no prior studies available for comparison at this time. ?? FINDINGS AND Resulting Agency Comment [id number] Procedure Note Tess Walsh MD - 12/23/2024 [...] possible to obtain thecompleted interpretation. Workstation ID: [id number] us Heidi Camacho MD IMG XR PROCEDURES [...] obtain the completed interpretation. ? Workstation ID: [id number] Narrative 12/23/2024 4:22 PM EST COMPARISON: ??There are no prior studies available for comparison at this time. ?? FINDINGS AND Resulting Agency Comment [id number] Procedure Note Tess Walsh MD - 12/23/2024 [...] possible to obtain thecompleted interpretation. Workstation ID: [id number] Heidi Camacho MD IMG XR PROCEDURES Fin [...] obtain the completed interpretation. ? Workstation ID: [id number] Narrative 12/23/2024 4:22 PM EST COMPARISON: ??There are no prior studies available for comparison at this time. ?? FINDINGS AND Resulting Agency Comment [id number] Procedure Note Tess Walsh MD - 12/23/2024 [...] possible to obtain thecompleted interpretation. Workstation ID: [id number] Heidi Camacho MD IMG XR PROCEDURES Fin al Result from Last 3 Months Insurance [facility] [place] [id number] [facility] Care Teams Search Engine Optimization Specialist Relationship Specialty Start Date End Date [address] [id number] PCP - General 10/21/24
--- OUTSIDE RECORDS SUMMARY | 2025-02-18 18:30 | XMS_ITS | Clinical Summary ---
Author Organization [facility] Address [address] [place] [address] Care Team Providers Care Communications Station Manager Name Role Phone [facility] Primary Care Provider [phone] Allergies No known active allergies Medications acetaminophen [...] Department Care Team Description 12/25/2024 Results Follow-Up [facility] Rheumatology Clinic [address] [place] [address] Cracking Unit Operator: Heidi Rawls MD 12/23/2024 3:00 PM EST - 12/23/2024 11:59 PM EST Hospital Encounter [facility] XRay [address] [place] [address] Heidi Jenkins MD Arthralgia of multiple sites Discharge Disposition: Home or Self Care (01) 12/23/2024 2:40 PM EST Office Visit [facility] Rheumatology [facility] [address] [place] [address] Cracking Unit Operator: Heidi Rawls MD Systemic lupus erythematosus with [...] Description 07/11/2025 11:20 AM EDT Office Visit [facility] Rheumatology [facility] [address] [place] [address] Cracking Unit Operator: Heidi Naik MD [address] [place] [address] Health Maintenance Due Date Last Done Comments [...] complete this topic Procedures * Due to [place] state law, this organization might not be [...] IFA W/RFX TO TTR/PAT, SYSTEMIC AUTOIMMUNE PANEL [id number] Routine 12/23/2024 3:24 PM EST Systemic lupus [...] Last 3 Months Results * Due to [place] state law, this organization might not be sharing negative HIV tests. * Mcknight Top, Urine (12/23/2024 3:24 PM EST) Extra Tube Hold for add-ons. 12/23/2024 8:05 PM EST [facility] Comment:Auto resulted. Urine Urine specimen collection, clean catch / Unknown Non-Blood Collection / Unknown 12/23/2024 3:24 PM EST 12/23/2024 5:00 PM EST Heidi Camacho MD LAB URINE ORDERABLES Final Result Performing Organization Address City/State/[facility] Co de Phone Number [facility] [address] [place] [address], [place] * (ABNORMAL) LUIS A, Titer and Pattern (12/23/2024 3:24 PM EST) LUIS A Titer 1 1:160(H) titer 01/01/2025 1:18 PM EDT [facility]/N [facility] Comment: Reference Ranges for Anti-Nuclear Ab Titer: ?? <1:40 ?Negative ?? 1:40-1:80 ??Low Antibody Level ?? >1:80 ?Elevated Antibody Level LUIS A Pattern 1 NUCLEAR, HOMOGENEOUS 01/01/2025 1:18 PM EDT [facility]/N [facility] Comment: Homogeneous pattern is associated with systemic lupus erythematosus (SLE), drug-induced lupus and juvenile idiopathic arthritis. AC-1: Homogeneous International Consensus on LUIS A Patterns https://doi.org/10.1515/base-2885-3700 Blood Structure of peripheral vein / Unknown Venipuncture / Unknown 12/23/2024 3:24 PM EST 12/23/2024 3:43 PM EST Narrative [facility] - 01/01/2025 1:18 PM EDT [facility] Received Date:[id number] Heidi Camacho MD LAB BLOOD ORDERABLES Final Result Performing Organization Address [facility] Co de Phone Number [facility] [address] [place] [address], [place] [phone] * (ABNORMAL) ANAlyzeR LUIS A, IFA w/Rfx Ttr/Pat, Systemic Autoimmune Panel 1 (includes LUIS A, IFA w/Rfx, DNA (ds) w/Rfx to Ttr, Chromatin, Sm, SM/HOOP PUNCH AND COILER OPERATOR HELPER, HOOP PUNCH AND COILER OPERATOR HELPER, SSA, SSB, Scl70, Jo1, CENPB, C3c, C4c, CardiolipinIgA/G/M, B2-GPI IgA/G/M, RF IgA/G/M, CCP IgG, MCV Ab (12/23/2024 3:24 PM EST) LUIS A Screen, IFA POSITIVE(A) NEGATIVE 01/02/20 1:18 PM EDT [facility] [place] Comment: LUIS A IFA is a first line screen for detecting the presence of up to approximately 150 autoantibodies in various autoimmune diseases. A positive LUIS A IFA result is suggestive of autoimmune disease and reflexes to titer and pattern. Further laboratory testing may be considered if clinically indicated. For additional information, please refer to http://education.Mompery/faq/HHF405 (This link is being provided for informational/educational purposes only.) DNA Ab(ds) Crithidia, IFA NEGATIVE NEGATIVE 01/01/2025 1:18 PM EDT [facility] [place] Chromatin Antibody <1.0 NEG <1.0 NEGATIVE AI 01/01/2025 1:18 PM EDT [facility] [place] Sm Antibody <1.0 NEG <1.0 NEGATIVE AI 01/01/2025 1:18 PM EDT [facility] [place] SM/HOOP PUNCH AND COILER OPERATOR HELPER Antibody <1.0 NEG <1.0 NEGATIVE AI 01/01/2025 1:18 PM EDT [facility] [place] HOOP PUNCH AND COILER OPERATOR HELPER Antibody 1.0 POS(A) <1.0 NEGATIVE AI 01/01/2025 1:18 PM EDT [facility] [place] Sjogren's Ab (SS-A) 1.3 POS(A) <1.0 NEGATIVE AI 01/01/2025 1:18 PM EDT [facility] [place] Sjogren's Ab (SS-B) <1.0 NEG <1.0 NEGATIVE AI 01/01/2025 1:18 PM EDT [facility] [place] SCL-70 Antibody <1.0 NEG <1.0 NEGATIVE AI 01/01/2025 1:18 PM EDT [facility] [place] JENNIFER-1 Antibody <1.0 NEG <1.0 NEGATIVE AI 01/01/2025 1:18 PM EDT [facility]/ [facility] Centromere B Antibody <1.0 NEG <1.0 NEGATIVE AI 01/01/2025 1:18 PM EDT [facility] Complement Component C3C 124 83 - 193 mg/dL 01/01/2025 1:18 PM EDT [facility] Complement Component C4C 23 15 - 57 mg/dL 01/01/2025 1:18 PM EDT [facility] Cardiolipin Ab IgA 6.7 APL-U/mL 2024 1:18 PM EDT [facility]/ [facility] Comment: Value ?Interpretation ----- ? <20.0 ?Antibody not detected > or = 20.0 ??Antibody detected Cardiolipin Ab IgG <2.0 GPL-U/mL 2024 1:18 PM EDT [facility]/ [facility] Comment: Value ?Interpretation ----- ? <20.0 ?Antibody not detected > or = 20.0 ??Antibody detected Cardiolipin Ab IgM <2.0 MPL-U/mL 2024 1:18 PM EDT [facility]/ [facility] Comment: Value ?Interpretation ----- ? <20.0 ?Antibody not detected > or = 20.0 ??Antibody detected Beta2-Glycoprotein I (IgA) 9.1 U/mL 01/01/2025 1:18 PM EDT [facility] Comment: Value ?Interpretation ----- ? <20.0 ?Antibody not detected > or = 20.0 ??Antibody detected Beta2-Glycoprotein I (IgG) 2.6 U/mL 01/01/2025 1:18 PM EDT [facility] TONY [place] Comment: Value ?Interpretation ----- ? <20.0 ?Antibody not detected > or = 20.0 ??Antibody detected Beta2-Glycoprotein I (IgM) <2.0 U/mL 01/01/2025 1:18 PM EDT [facility] Comment: The antiphospholipid antibody [...] aging. For additional information, please refer to http://education.Sungevity/faq/EAS688 (This link is being provided for informational/educational purposes only.) Value ?Interpretation ----- ? <20.0 ?Antibody not detected > or = 20.0 ??Antibody detected Rheumatoid Factor IgA <5 U 01/01/2025 1:18 PM EDT [facility] TON[facility] OL[facility] Comment: ?Reference Range: ?<=6 ??NEGATIVE ?>6 ?? POSITIVE Rheumatoid Factor IgG <5 U 01/01/2025 1:18 PM EDT [facility] [place] Comment: ?Reference Range: ?<=6 ??NEGATIVE ?>6 ?? POSITIVE Rheumatoid Factor IgM <5 U 01/01/2025 1:18 PM EDT [facility] [place] Comment: ?Reference Range: ?<=6 NEGATIVE ?>6 ??POSITIVE Cyclic Citrullinated Peptide (CCP) Ab (IgG) <16 Units 01/01/2025 1:18 PM EDT [facility]/ [facility] JUAN [place] Comment: ?Reference Range: ?NEGATIVE: ? <20 ?WEAK POSITIVE: ? 20-39 ?MODERATE POSITIVE: ? 40-59 ?STRONG POSITIVE ? >59 Mutated Citrullinated Vimentin (MCV) Ab <20 <20 U/mL 01/01/2025 1:18 PM EDT [facility] Comment: Anti-mutated citrullinated vimentin antibody may be used as a second-line marker of rheumatoid arthritis, in addition to rheumatoid factor and anti-cyclic citrullinated peptide (CCP). Thyroid Peroxidase Antibodies <1 <9 IU/mL 01/01/2025 1:18 PM EDT [facility]/ [facility] Blood Structure of peripheral vein / Unknown Venipuncture / Unknown 12/23/2024 3:24 PM EST 12/23/2024 3:43 PM EST Narrative [facility] - 01/01/2025 1:18 PM EDT [facility] Received Date: Heidi Camacho MD LAB BLOOD ORDERABLES Final Result [facility] [address] [facility] 3rd Floor, [address] [place] [address], [place] [phone] [facility] [address] [facility] [address], [place] [phone] * Urinalysis W/Reflex to Microscopic & Culture (12/23/2024 3:24 PM EST) Color, Urine Yellow Colorless, Light Yellow, Yellow, Dark Yellow 12/23/2024 5:12 PM EST [facility] Clarity, Urine Clear Clear 12/23/2024 5:12 PM EST [facility] Specific [place], Urine 1.017 1.005 - 1.030 12/23/2024 5:12 PM EST [facility] pH, Urine 6.0 4.6 - 8.0 12/23/2024 5:12 PM EST [facility] Protein, Urine Negative Negative 12/23/2024 5:12 PM EST [facility] Glucose, Urine Negative Negative 12/23/2024 5:12 PM EST [facility] Ketones, Urine Negative Negative 12/23/2024 5:12 PM EST [facility] Bilirubin, Urine Negative Negative 12/23/2024 5:12 PM EST [facility] Blood, Urine Negative Negative 12/23/2024 5:12 PM EST [facility] Nitrite, Urine Negative Negative 12/23/2024 5:12 PM EST [facility] Urobilinogen, Urine Normal Normal 12/23/2024 5:12 PM EST [facility] Leukocyte Esterase, Urine Negative Negative 12/23/2024 5:12 PM EST [facility] Urine Urine specimen collection, clean catch / Unknown Non-Blood Collection / Unknown 12/23/2024 3:24 PM EST 12/23/2024 5:00 PM EST Heidi Camacho MD LAB URINE ORDERABLES Final Result [facility] [address] [place] [address], [place] * DNA Antibody (ds) Crithidia IFA w/Reflex (12/23/2024 3:24 PM EST) DNA Ab(ds) Crithidia, IFA Negative Negative 12/27/2024 11:55 AM EST [facility] Blood Structure of peripheral vein / Unknown Venipuncture / Unknown 12/23/2024 3:24 PM EST 12/23/2024 3:43 PM EST Narrative [facility] - 12/27/2024 11:55 AM EST [facility] Received Date:[id number] Heidi Camacho MD LAB BLOOD ORDERABLES Final Result YI [address], [place] [address], [facility] ([facility]) [address] [place], [place] , [place] * (ABNORMAL) SSA & SSB (SJOGREN'S) Antibodies (12/23/2024 3:24 PM EST) Sjogren's Ab (SS-A) 1.5 POS(A) <1.0 NEG AI 12/24/2024 1:58 PM EST [facility] Sjogren's Ab (SS-B) <1.0 NEG <1.0 NEG AI 12/24/2024 1:58 PM EST [facility] Blood Structure of peripheral vein / Unknown Venipuncture / Unknown 12/23/2024 3:24 PM EST 12/23/2024 3:43 PM EST Narrative [facility] - 12/24/2024 1:58 PM EST [facility] Received Date: Heidi Camacho MD LAB BLOOD ORDERABLES Final Result [facility] [address] [facility] 3rd Floor, [place] [address], [facility] [address] [facility] [address]rd Floor, [place] [address], * Protein Electrophoresis w/Reflex to Immunofixation, Serum (12/23/2024 3:24 PM EST) Protein, Total 7.1 6.1 - 8.1 g/dL 12/24/2024 10:13 PM EST [facility] Albumin 4.2 3.8 - 4.8 g/dL 12/24/2024 10:13 PM EST [facility] Alpha 1 Globulin 0.3 0.2 - 0.3 g/dL 12/24/2024 10:13 PM EST [facility] Alpha 2 Globulin 0.8 0.5 - 0.9 g/dL 12/24/2024 10:13 PM EST [facility] Beta 1 Globulin 0.4 0.4 - 0.6 g/dL 12/24/2024 10:13 PM EST [facility] Beta 2 Globulin 0.4 0.2 - 0.5 g/dL 12/24/2024 10:13 PM EST [facility] Gamma Globulin 1.1 0.8 - 1.7 g/dL 12/24/2024 10:13 PM EST [facility] Interpretation See Comments 12/24/2024 10:13 PM EST [facility] Comment: Normal Serum Protein Electrophoresis Pattern. No abnormal protein bands (M-protein) detected. Blood Structure of peripheral vein / Unknown Venipuncture / Unknown 12/23/2024 3:24 PM EST 12/23/2024 3:43 PM EST Narrative [facility] - 12/24/2024 10:13 PM EST [facility] Received Date:[id number] Heidi Camacho MD LAB BLOOD ORDERABLES Final Result [facility] [address] [facility] 3rd Floor, [place] [address], [place] [phone] [facility] [address] [facility] [address]rd Floor, [place] [address], [place] [phone] * TSH Reflex Free T4 (12/23/2024 3:24 PM EST) TSH 2.980 0.280 - 3.890 uIU/mL 12/23/2024 4:22 PM EST [facility] Comment: Females: 1st trimester ? 0.150-4.000 ??IU/mL 2nd trimester ?? 0.310-4.170 ?IU/mL 3rd trimester ?0.380-4.150 ?IU/mL Blood Structure of peripheral vein / Unknown Venipuncture / Unknown 12/23/2024 3:24 PM EST 12/23/2024 3:43 PM EST Heidi Camacho MD LAB BLOOD ORDERABLES Final Result [facility] [address] [place] [address], * (ABNORMAL) CBC Auto Differential (12/23/2024 3:24 PM EST) WBC 8.1 3.8 - 10.8 10*3/uL 12/23/2024 3:53 PM EST [facility] RBC 4.74 3.80 - 5.10 10*6/uL 12/23/2024 3:53 PM [facility] Hemoglobin 14.6 11.7 - 15.5 g/dL 12/23/2024 3:53 PM EST [facility] Hematocrit 43.0 35.0 - 45.0 % 12/23/2024 3:53 PM [facility] MCV 90.7 80.0 - 100.0 fL 12/23/2024 3:53 PM EST [facility] MCH 30.8 27.0 - 33.0 pg 12/23/2024 3:53 PM [facility] MCHC 34.0 32.0 - 36.0 g/dL 12/23/2024 3:53 PM [facility] RDW 12.3 11.0 - 15.0 % 12/23/2024 3:53 PM [facility] Platelets 212 140 - 400 10*3/uL 12/23/2024 3:53 PM [facility] MPV 10.6 7.5 - 12.5 fL 12/23/2024 3:53 PM [facility] Neutrophil % 58.3 % 12/23/2024 3:53 PM [facility] Immature Grans % 0.5 0.0 - 0.9 % 12/23/2024 3:53 PM [facility] Lymphocyte % 27.6 % 12/23/2024 3:53 PM EST [facility] Monocyte % 11.4 % 12/23/2024 3:53 PM [facility] Eosinophil % 2.0 % 12/23/2024 3:53 PM [facility] Basophil % 0.2 % 12/23/2024 3:53 PM [facility] Neutrophil # 4.70 1.50 - 7.80 10*3/uL 12/23/2024 3:53 PM EST [facility] Immature Grans # 0.04(H) <=0.03 10*3/uL 12/23/2024 3:53 PM EST [facility] Lymphocyte # 2.20 0.85 - 3.90 10*3/uL 12/23/2024 3:53 PM EST [facility] Monocyte # 0.90 0.20 - 0.95 10*3/uL 12/23/2024 3:53 PM EST [facility] Eosinophil # 0.20 0.02 - 0.50 10*3/uL 12/23/2024 3:53 PM EST [facility] Basophil # <0.03 0.00 - 0.20 10*3/uL 12/23/2024 3:53 PM EST [facility] nRBC % 0.0 /100 WBCs 12/23/2024 3:53 PM EST [facility] nRBC # <0.01 <0.01 10*3/uL 12/23/2024 3:53 PM EST [facility] Blood Structure of peripheral vein / Unknown Venipuncture / Unknown 12/23/2024 3:24 PM EST 12/23/2024 3:43 PM EST Heidi Camacho MD LAB BLOOD ORDERABLES Final Result Performing Organization Address City/State/[facility] Co de Phone Number [facility] [address] [place] [address], * Cyclic Citrullinated Peptide (CCP) Antibody, IgG (12/23/2024 3:24 PM EST) Cyclic Citrullinated Peptide (CCP) Ab (IgG) <16 UNITS 12/24/2024 8:58 PM EST [facility] Comment: Reference Range Negative: ?<20 Weak Positive: ? 20-39 Moderate Positive: ?? 40-59 Strong Positive: ? >59 Blood Structure of peripheral vein / Unknown Venipuncture / Unknown 12/23/2024 3:24 PM EST 12/23/2024 3:43 PM EST Narrative [facility] - 12/24/2024 8:58 PM EST [facility] Received Date:[id number] Heidi Camacho MD LAB BLOOD ORDERABLES Final Result [facility] [address] [facility] 3rd Floor, [place] [address], [place] [phone] [facility] [address] [facility] [address]rd Floor, [place] [address], [place] [phone] * Microalbumin, Random Urine with Creatinine (12/23/2024 3:24 PM EST) Microalbumin, Urine <2.0 mg/dL 12/23/2024 6:34 PM EST [facility] Creatinine, Urine 82 15 - 278 mg/dL 12/23/2024 6:34 PM EST [facility] Microalb/Creat Ratio, Random Urine 12/23/2024 6:34 PM EST [facility] Comment: < 1.0 mcg/mgCr Microalbumin Reference Range: Normal ? <30 mcg/mg Creatinine Microalbuminuria ? 30-300 mcg/mg Creatinine Clinical Albuminuria >300 mcg/mg Creatinine Reference: ADA Guideline. Diabetes Care. 2004;27 (suppl 1) Urine Urine specimen collection, clean catch / Unknown Non-Blood Collection / Unknown 12/23/2024 3:24 PM EST 12/23/2024 5:00 PM EST Heidi Camacho MD LAB URINE ORDERABLES Final Result [facility] [address] [place] [address], * DNA Antibody, Double-Stranded (12/23/2024 3:24 PM EST) Pathologist [facility] DNA (Ds) Antibody 1 IU/mL 025 2:01 PM EST [facility] Comment: ? IU/mL ? Interpretation ? < [...] BLOOD ORDERABLES Final Result Performing Organization Address City/State/[facility] Co de Phone Number [facility] [address] [facility] [address]rd [address], [place] [address], [place] [phone] [facility] [address] [facility] [address]rd [address], [place] [address], [place] [phone] * Protein, Random Urine with Creatinine (12/23/2024 3:24 PM EST) Pathologist [facility] Protein, Urine 10 mg/dL 12/23/2024 5:45 PM EST [facility] Creatinine, Urine 85 15 - 278 mg/dL 12/23/2024 5:45 PM EST [facility] Protein/Creati nine, Urine Ratio 118 <200 mg/gmCr 12/23/2024 5:45 PM EST [facility] Urine Urine specimen collection, clean catch / Unknown Non-Blood Collection / Unknown 12/23/2024 3:24 PM EST 12/23/2024 5:00 PM EST Heidi Camacho MD LAB URINE ORDERABLES Final Result Performing Organization Address [facility]/ZIP Co de Phone Number [facility] [address] [place] [address], * (ABNORMAL) Vitamin D, 25-Hydroxy, Total, Immunoassay (12/23/2024 3:24 PM EST) Calcidiol+ercalc idiol 21(L) 30 - 100 ng/mL 12/24/2024 8:10 AM EST [facility] Comment: Vitamin D Status ? 25-OH Vitamin D: Deficiency: ?<20 ng/mL Insufficiency: ? 20 - 29 ng/mL Optimal: ? > or = 30 ng/mL For 25-OH Vitamin D testing on patients on D2-supplementation and patients for whom quantitation of D2 and D3 fractions is required, the QuestAssureD(TM) 25-OH VIT D, (D2,D3), LC/MS/MS is recommended: order code 83961 (patients >2yrs). See Note 1 Note 1 For additional information, please refer to http://education.Ykone.Bellco/faq/QWR599 (This link is being provided for informational/ educational purposes only.) Blood Structure of peripheral vein / Unknown Venipuncture / Unknown 12/23/2024 3:24 PM EST 12/23/2024 3:43 PM EST Narrative [facility] - 12/24/2024 8:10 AM EST [facility] Received Date:[id number] Heidi Camacho MD LAB BLOOD ORDERABLES Final Result Performing Organization Address City/[facility]/ZIP Co de Phone Number [facility] [address] [facility] [address]rd [address], [place] [address], [place] [phone] [facility] [address] [facility] [address]rd [address], [place] [address], [place] [phone] * Sedimentation Rate (12/23/2024 3:24 PM EST) Pathologist [facility] Sed Rate 12 <20 mm/Hr mm/Hr 12/23/2024 3:55 PM EST [facility] Blood Structure of peripheral vein / Unknown Venipuncture / Unknown 12/23/2024 3:24 PM EST 12/23/2024 3:43 PM EST Heidi Camacho MD LAB BLOOD ORDERABLES Final Result [facility] [address] [place] [address], [place] * Rheumatoid Factor (12/23/2024 3:24 PM EST) Pathologist [facility] Rheumatoid Factor <10 <14 IU/mL 12/24/2024 8:29 AM EST [facility] Blood Structure of peripheral vein / Unknown Venipuncture / Unknown 12/23/2024 3:24 PM EST 12/23/2024 3:43 PM EST Narrative [facility] - 12/24/2024 8:29 AM EST [facility] Received Date:[id number] Heidi Camacho MD LAB BLOOD ORDERABLES Final Result [facility] [address] [facility] [address]rd [address], [place] [address], [place] [phone] [facility] [address] [facility] [address], [place] [address], [place] [phone] * Complement C3 (12/23/2024 3:24 PM EST) Pathologist [facility] Complement Component C3C 119 73 - 193 mg/dL 12/24/2024 8:29 AM EST [facility] Blood Structure of peripheral vein / Unknown Venipuncture / Unknown 12/23/2024 3:24 PM EST 12/23/2024 3:43 PM EST Narrative [facility] - 12/24/2024 8:29 AM EST [facility] Received Date:[id number] us Heidi Camacho MD LAB BLOOD ORDERABLES Final Result [facility] [address], [place] [address], [place] [phone] [facility] [address], [place] [address], [place] [phone] * Complement C4 (12/23/2024 3:24 PM EST) Complement Component C4C 22 15 - 57 mg/dL 12/24/2024 8:29 AM EST [facility] Blood Structure of peripheral vein / Unknown Venipuncture / Unknown 12/23/2024 3:24 PM EST 12/23/2024 3:43 PM EST Narrative [facility] - 12/24/2024 8:29 AM EST [facility] Received Date:[id number] us Heidi Camacho MD LAB BLOOD ORDERABLES Final Result [facility] [address], [place] [address], [place] [phone] [facility] [address], [place] [address], [place] [phone] * C-Reactive Protein (12/23/2024 3:24 PM EST) C Reactive Protein 9.3 <=9.9 mg/L 12/23/2024 4:22 PM EST [facility] Blood Structure of peripheral vein / Unknown Venipuncture / Unknown 12/23/2024 3:24 PM EST 12/23/2024 3:43 PM EST us Heidi Camacho MD LAB BLOOD ORDERABLES Final Result [facility] [address] [place] [address], * (ABNORMAL) Comprehensive Metabolic Panel (12/23/2024 3:24 PM EST) NA 137 135 - 145 mmol/L 12/23/2024 4:22 PM EST [facility] K 3.9 3.5 - 5.3 mmol/L 12/23/2024 4:22 PM EST [facility] Cl 102 98 - 107 mmol/L 12/23/2024 4:22 PM EST [facility] CO2 23 22 - 32 mmol/L 12/23/2024 4:22 PM EST [facility] Anion Gap 12 5 - 15 12/23/2024 4:22 PM EST [facility] Glucose 84 65 - 99 mg/dL 12/23/2024 4:22 PM EST [facility] Creatinine 0.68 0.50 - 1.20 mg/dL 12/23/2024 4:22 PM EST [facility] Calcium 8.7 8.6 - 10.5 mg/dL 12/23/2024 4:22 PM EST [facility] Total Protein 7.3 6.0 - 8.0 g/dL 12/23/2024 4:22 PM EST [facility] Albumin 4.1 3.5 - 5.2 g/dL 12/23/2024 4:22 PM EST [facility] Bilirubin, Total 0.3 0.2 - 1.2 mg/dL 12/23/2024 4:22 PM EST [facility] Alkaline Phosphatase 91 35 - 129 U/L 12/23/2024 4:22 PM EST [facility] AST 32 10 - 40 U/L 12/23/2024 4:22 PM EST [facility] ALT 34 10 - 40 U/L 12/23/2024 4:22 PM EST [facility] BUN 10 7 - 23 mg/dL 12/23/2024 4:22 PM EST [facility] eGFR >90 >=60 mL/min/1. 73m2 12/23/2024 4:22 PM EST [facility] Comment:The estimated glomer ular filtration [...] - 4.2 g/dL 12/23/2024 4:22 PM EST [facility] A/G Ratio 1.3(L) 1.5 - 3.0 12/23/2024 4:22 PM EST [facility] Blood Structure of peripheral vein / Unknown Venipuncture / Unknown 12/23/2024 3:24 PM EST 12/23/2024 3:43 PM EST us Heidi Camacho MD LAB BLOOD ORDERABLES Final Result [facility] [address] [place] [address], [place] * XR Foot 3+ vw Right [...] obtain the completed interpretation. ? Workstation ID: [id number] Narrative 12/23/2024 4:22 PM EST COMPARISON: ??There are no prior studies available for comparison at this time. ?? FINDINGS AND Resulting Agency Comment [id number] Procedure Note Tess Walsh MD - 12/23/2024 [...] possible to obtain thecompleted interpretation. Workstation ID: [id number] Heidi Camacho MD IMG XR PROCEDURES Fin [...] obtain the completed interpretation. ? Workstation ID: [id number] Narrative 12/23/2024 4:22 PM EST COMPARISON: ??There are no prior studies available for comparison at this time. ?? FINDINGS AND Resulting Agency Comment [id number] Procedure Note Tess Walsh MD - 12/23/2024 [...] possible to obtain thecompleted interpretation. Workstation ID: [id number] us Heidi Camacho MD IMG XR PROCEDURES [...] obtain the completed interpretation. ? Workstation ID: [id number] Narrative 12/23/2024 4:22 PM EST COMPARISON: ??There are no prior studies available for comparison at this time. ?? FINDINGS AND Resulting Agency Comment [id number] Procedure Note Tess Walsh MD - 12/23/2024 [...] possible to obtain thecompleted interpretation. Workstation ID: [id number] us Heidi Camacho MD IMG XR PROCEDURES [...] obtain the completed interpretation. ? Workstation ID: [id number] Narrative 12/23/2024 4:22 PM EST COMPARISON: ??There are no prior studies available for comparison at this time. ?? FINDINGS AND Resulting Agency Comment [id number] Procedure Note Tess Walsh MD - 12/23/2024 [...] possible to obtain thecompleted interpretation. Workstation ID: [id number] us Heidi Camcaho MD IMG XR PROCEDURES Fin al Result from Last 3 Months Insurance [facility] HSNO/FREE CARE Care Teams Communications Station Manager Relationship Specialty Start Date End Date [address] [address] PCP - General 10/21/24
--- OUTSIDE RECORDS SUMMARY | 2025-02-18 18:30 | XMS_ITS | Encounter Summary ---
Author Organization [facility] Address [address] [place] [address] Care Team Providers Care Hand Finisher Name Role Phone [facility] Primary Care Provider [phone]- [phone] Encounter Details Date Type Department Care Team ([facility] Contact Info) Description 12/25/2024 Results Follow-Up [facility] [address] [place] [phone] Engineering Teacher: Heidi Naik MD [address] [place] [phone] Social History Tobacco Use Types Packs/Day Years [...] Upcoming Encounters Date Type Department Care Team ([facility] Contact Info) Description 07/11/2025 11:20 AM EDT Office Visit [facility] [address] [place] [phone] Engineering Teacher: Heidi Naik MD [address] [place] [phone] documented as of this encounter Visit Diagnoses Not on filedocumented in this encounter Care Teams Hand Finisher Relationship Specialty Start Date End Date [address] [address] PCP - General 10/21/24 documented as of this encounter
[2025-02-21 13:41] LABS: HPV Genotype 16 Negative (Negative); HPV Genotype 18 Negative (Negative); HPV High Risk Negative (Negative)
== END 2025-02-18 16:23 | disposition home or self-care (01) ==
LOC: HO.HHCLNP 16:22
PROVIDERS: Visit Provider Advanced Practice Midwife
DX: Z12.4 Encounter for screening for malignant neoplasm of cervix (principal); Z11.51 Encounter for screening for human papillomavirus (HPV)
CPT/HCPCS: 87626; 88175

== ENCOUNTER 2025-08-27 18:02 | Outpatient (REF) | payer MEDICAID, SELFPAY ==
--- OUTSIDE RECORDS SUMMARY | 2025-08-27 19:14 | XMS_ITS | Clinical Summary ---
Author Organization [facility] Address [address] [place] [phone] Phone Care Team Providers Care Mason Foreman/Superintendant Name Role Phone Chayito Holman DO Primary Care Provider [phone]- [phone] Social History Tobacco Use Types Packs/Day Years [...] Health Maintenance Due Date Last Done Comments Colorectal Cancer Screening: Colonoscopy 1977 Cervical Cancer Screening: P ap Smear 1998 Social Influencers of Health Screening 11/16/2023 Depression Screening 10/23/2024 Hepatitis B Vaccines (2 of 3 - 19+ 3-dose series) 12/16/2024 11/18/2024 COVID-19 Vaccine ( - 2023-2 5 season) 2025 Influenza Vaccine (#1) 2025 Breast Cancer Screening 12/03/2026 12/03/2024 Cholesterol Screening (Lipid Panel) 10/17/2029 10/17/2024 DTaP,Tdap,and Td Vaccines (2 - Td or Tdap) 11/18/2034 11/18/2024 RSV Immunization Adult Patie nts (1 - 1-dose 75+ series) 2052 HIV [...] 5 Years) and At-Risk Patients (6 to 49 Years) Aged Out No longer eligi ble [...] neoplasm of breast from Last 3 Months or Most Recently Relevant to Health Maintenance Results * MG Mammo Digital Screening w Nilo bilat (12/03/2024 4:13 PM EST) Anatomical Region Laterality Modality Breast Bilateral Mammography 12/04/2024 8:23 AM EST Impressions 12/04/2024 9:19 AM EST No mammographic evidence of malignancy. BI-RADS: Category 1: Negative RECOMMENDATION(S): 1: Routine screening mammogram BILATERAL in 1 year. -------- FINAL REPORT -------- Dictated By: FRANCO MCKEON Dictated Date: 12/04/2024 08:23 ET Assigned Physician: FRANCO MCKEON Reviewed and Electronically Signed By: FRANCO MCKEON Signed Date: 12/04/2024 09:19 ET Workstation ID: [id number] Transcribed By: Self Edit Transcribed Date: 12/04/2024 08:32 ET Narrative 12/04/2024 9:19 AM EST EXAM: MG MAMMO DIGITAL SCREENING W NILO BILAT EXAM DATE AND TIME: 12/03/2024 3:59 PM HISTORY: Screening COMPARISON: Patient's previous mammograms are in located in [place] and not available. This is considered a new baseline examination. TECHNIQUE: Bilateral digital breast tomosynthesis was performed in the CC and MLO projections. Computer aided detection with [employer] ProFound AI 3D 3.1 was employed. TISSUE [...] Patient's previous mammograms are in located in [place] andnot available. This is considered a new [...] Signed Date: 12/04/2024 09:19 ET Workstation ID: [id number] Transcribed By: Self Edit Transcribed Date: 12/04/2024 08:32 ET us Chayito Holman DO IMG BI PROCEDURES Final Re sult from Last 3 Months or Most Recently Relevant to Health Maintenance Insurance [place] Care Teams Mason Foreman/Superintendant Relationship Specialty Start Date End Date Chayito Holman DO [address] [place] [address] PCP - General Family Medicine 11/27/24
--- OUTSIDE RECORDS SUMMARY | 2025-08-27 19:14 | XMS_ITS | Clinical Summary ---
Author Organization [facility] Address [address] [place] [address] Care Team Providers Care Javascript Ui Developer Name Role Phone [facility] Primary Care Provider +1- [phone] Allergies No known active allergies Medications acetaminophen [...] Encounters Date Type Department Care Team Description 07/11/2025 Documentation [facility] [address] [place] [address] Healthcare Economics Manager: Heidi Naik MD No Show from Last 3 Months Social History Tobacco [...] 70 12/23/2024 2:28 PM EST Temperature 36.9 C (98.4 F) 12/23/2024 2:28 PM EST Respiratory Rate - - Oxygen Saturation - - Inhaled Oxygen Concentration - - Weight 91.6 kg (202 lb) 12/23/2024 2:28 PM EST Height - - Body Mass Index - - Plan of Treatment Health Maintenance Due Date Last Done Comments Cervical Cancer Screening 1977 Cologuard 1977 Colonoscopy 1977 HPV and Pap Smear 1977 Pap Smear 1977 Sigmoidoscopy 1977 Alcohol/Substance Use Screening 10/23/2024 Depression Screening and Follow-Up 10/23/2024 Social Drivers of Health Annual Screening 10/23/2024 Hepatitis B Vaccines (2 of 3 - 19+ 3-dose series) 12/16/2024 11/18/2024 COVID-19 Vaccine (1 - 2024-2 6 season) 2025 Influenza Vaccine (#1) 2025 Colon Cancer Screening 10/17/2025 FOBT / Fit Test 10/17/2025 10/17/2024 Mammogram 12/03/2026 12/03/2024 DTaP,Tdap,and Td Vaccines (2 - Td or Tdap) 11/18/2034 11/18/2024 HIV Screening Completed 10/17/2024, 10/17/2024 Hepatitis C Screening Completed 10/17/2024 Pneumococcal Vaccine: Pediatric (0-5 Years) and At-Risk Patients (6-50 Years) Aged Out No longer eligible based on patient's age to complete this topic Insurance [employer] HSNO/FREE CARE Care Teams Javascript Ui Developer Relationship Specialty Start Date End Date [address] [phone] PCP - General 10/21/24
== END 2025-08-27 18:03 | disposition home or self-care (01) ==
LOC: HO.HHCLNP 18:02
PROVIDERS: Visit Provider Emergency Medicine
DX: R82.90 Unspecified abnormal findings in urine (principal)
CPT/HCPCS: 87086; 87088; 87186

== ENCOUNTER 2025-08-28 12:07 | Outpatient (REF) | payer MEDICAID, SELFPAY ==
--- OUTSIDE RECORDS SUMMARY | 2025-08-27 15:20 | XMS_ITS | Encounter Summary ---
Author Organization [employer] Address [address] [place] [address] Care Team Providers Care Harness Rigger Name Role Phone Chayito Holman DO Primary Care Provider + [phone] Reason for Visit * Reason Comments uti symptoms Encounter Details Date Type Department Care Team ([facility] Contact Info) Description 08/27/2025 3:20 PM EST Office Visit [facility] [address], [place] [phone] Basim Garcia MD [address] [place], [place] [phone] Dysuria (Primary Dx); Vaginal discharge; Urine abnormality Social History Tobacco Use Types Packs/Day Years [...] Sign Reading Time Taken Comments Blood Pressure 112/80 08/27/2025 3:56 PM EST Pulse 99 08/27/2025 3:56 PM EST Temperature 35.9 C (96.6 F) 08/27/2025 3:56 PM EST Respiratory Rate 20 08/27/2025 3:56 PM EST Oxygen Saturation 98% 08/27/2025 3:56 PM EST Inhaled Oxygen Concentration - - Weight 75.4 kg (166 lb 3.2 oz) 08/27/2025 3:56 P M EST Height 167.6 cm (5' 6 ) 08/27/2025 3:56 PM EST Body Mass Index 26.83 08/27/2025 3:56 PM EST documented in this encounter Progress Notes * Basim Garcia MD - 08/27/2025 3:20 PM EST Subjective Patient ID: Francesca Moulton is a 49 y.o. female. [employer] Team Member: iPad Honduran HPI Francesca had recurrence 2 days ago of urine infection and vaginal discharge with symptoms of vaginal burning at end of urination and itching. Had frequency yesterday, not today. Has mild nausea. Had chills yesterday. No urgency, fever, abdominal or flank pain. States has had similar symptoms every month since starting Mounjaro, occurs the day after taking Mounjaro, which she last took 2 days ago. She started Mounjaro 5 months ago, prescribed by provider in [place]. She has taken amoxicillin or a fluoroquinolone monthly for the UTI symptoms (obtained from [place]), and came to [facility] today because she used the last antibiotics last month. Lives with boyfriend. Has unprotected intercourse. LMP=no menses since staring BCP. Works as agency sales director. Never smoked. Occasional EtOH. Patient Active Problem List Diagnosis Date Noted Seasonal allergies 05/13/2025 Fibromyalgia 05/13/2025 Perimenopause 01/07/2025 Major depression, recurrent, chronic (CMS/HCC) 11/18/2024 SLE (systemic lupus erythematosus) (CMS/HCC) ([facility]) 10/18/2024 Anxiety 10/18/2024 Chronic gastroesophageal reflux disease 10/18/2024 Raynaud disease 10/18/2024 The following portions of the chart were reviewed this encounter and updated as appropriate: Tobacco Allergies Meds Problems Med Hx Surg Hx Fam Hx Review of Systems Constitutional: Negative for fever. Respiratory: Negative for shortness of breath. Cardiovascular: Negative for chest pain. Gastrointestinal: Negative for abdominal pain. Genitourinary: Positive for dysuria, frequency and vaginal discharge. Negative for flank pain and urgency. Skin: Negative for rash. Neurological: Negative for headaches. Objective Physical Exam Constitutional: Appearance: Normal appearance. HENT: Right Ear: Tympanic membrane, ear canal and external ear normal. Left Ear: Tympanic membrane, ear canal and external ear normal. Nose: Nose normal. Mouth/Throat: Mouth: Mucous membranes are moist. Pharynx: Oropharynx is clear. Eyes: Conjunctiva/sclera: Conjunctivae normal. Pupils: Pupils are equal, round, and reactive to light. Cardiovascular: Rate and Rhythm: Normal rate and regular rhythm. Heart sounds: No murmur heard. Pulmonary: Effort: Pulmonary effort is normal. Breath sounds: Normal breath sounds. Abdominal: General: Abdomen is flat. Palpations: Abdomen is soft. Tenderness: There is no abdominal tenderness. There is no right CVA tenderness or left CVA tenderness. Musculoskeletal: General: Normal range of motion. Cervical back: No tenderness. Skin: Findings: No rash. Neurological: Mental Status: She is alert. Gait: Gait is intact. Psychiatric: Mood and Affect: Mood normal. Behavior: Behavior normal. Procedures Assessment/Plan Diagnoses and all orders for this visit: Dysuria Patient will no longer use Mounjaro. UA: Positive blood, large leukocytes. Urine C&S pending. Will call patient with results. Prescribed Macrobid. Return to clinic if not improving Vaginal discharge Self vaginal swabs pending. Will call patient with results. Advised to avoid sexual contact until results are back. Return to clinic if not improving - POCT urinalysis dipstick manually resulted (CPT 40944) - Culture, Urine, Routine; Future - Bacterial Vaginosis Panel - STI testing add on (NG, CT, Trich) Other orders - nitrofurantoin, macrocrystal-monohydrate, (Macrobid) 100 MG capsule; Take 1 capsule (100 mg) by mouth 2 times daily for 5 days. documented in this encounter Plan of Treatment Pending Results Name Type Priority Associated Diagnoses Date /Time Culture, Urine, Routine Microbiology Routine Urine abnormality 08/27/2025 12:00 AM EST Scheduled Orders Name Type Priority Associated Diagnoses Orde r Schedule STI testing add on (NG, CT, Trich) Pathology and Cytology Routine Urine abnormality Ordered: 08/27/2025 documented as of this encounter Procedures Procedure Name Priority Date/Time Associated Diagnosis Comments BACTERIAL VAGINOSIS PANEL Routine 08/28/2025 12:00 AM EST Urine abnormality POCT URINALYSIS DIPSTICK Routine 08/27/2025 4:08 PM EST Urine abnormality CULTURE, URINE, ROUTINE Routine 08/27/2025 12:00 AM EST Urine abnormality documented in this encounter Results * Bacterial Vaginosis Panel (08/28/2025 12:00 AM EST) TRICHOMONAS VAGINALIS DETECTION BY PCR NOT DETECTED Not Detect [facility] BACTERIAL VAGINOSIS DETECTION BY PCR NEGATIVE Negative [facility] Comment:The BV organism targ ets of the Xpert Xpress MVP test can becommensal in women; Xpert Xpress MVP positive results forbacterial vaginosis should be considered in conjunction withother clinical and patient information to determine thedisease status. Organisms that are not detected by the XpertXpress MVP test have also been reported to be associatedwith BV and aerobic vaginitis.The Xpert Xpress MVP test performance has not been evaluatedin patients under the age of 14. KATH GROUP DETECTION BY PCR NOT DETECTED Not Detect [facility] Kath glab krusei PCR NOT DETECTED Not Detect [facility] Swab Vaginal structure / Unknown 08/28/2025 08/28/2025 us Basim Garcia MD LAB MICROBIOLOGY - GENERAL ORDER RENZO Final Result [facility] [address] [place] [address] [phone] * (ABNORMAL) POCT urinalysis dipstick manually resulted (CPT 94287) (08/27/2025 4:08 PM EST) Color, UA Yellow Clarity, UA Cloudy Glucose, UA Negative Bilirubin, UA Negative Ketones, UA Negative Spec Grav, UA 1.005 Blood, UA Positive(A) Negative, None Detected pH, UA 6.5 Protein, UA Negative Urobilinogen, UA 0.2 Leukocytes, UA Trace Negative, Rare, Trace Comment:large Nitrite, UA Negative Negative, None Detected Appearance, UA cludy QC Media Lot # [id number] Lot# Expiration Date , Urine (Urine, Random) 08/27/2025 4:08 PM EST us Basim Garcia MD POINT OF CARE TEST ENTER/EDIT OR DERABLES Final Result documented in this encounter Visit Diagnoses Diagnosis Dysuria- Primary Vaginal discharge Leukorrhea, not specified as infective Urine abnormality Other nonspecific finding on examination of urine documented in this encounter Additional Health Concerns Assessment Noted Time PHQ-9 Depression Total Score: 10 025 11:25 AM EST documented as of this encounter Care Teams Harness Rigger Relationship Specialty Start Date End Date Chayito Holman DO [address] [place] [phone] PCP - General Family Medicine 11/19/24 documented as of this encounter
[2025-08-28 13:22] LABS: Bacterial Vaginosis PCR NEGATIVE (Negative); Candida Group PCR NOT DETECTED (Not Detect); Candida glab krusei PCR NOT DETECTED (Not Detect); Trichomonas vaginalis PCR NOT DETECTED (Not Detect)
--- OUTSIDE RECORDS SUMMARY | 2025-08-28 15:02 | XMS_ITS | Clinical Summary ---
Author Organization [facility] Address [address] [place] [address] Care Team Providers Care Sketch Liner Name Role Phone [facility] Primary Care Provider +1- [phone] Allergies No known active allergies Medications acetaminophen [...] Type Department Care Team Description 07/11/2025 Documentation [facility] [address] [place] [address] Billing Administrator: Heidi Naik MD No Show from Last [...] patient's age to complete this topic Insurance [employer] HSNO/FREE CARE Care Teams Sketch Liner Relationship Specialty Start Date End Date [address] [phone] PCP - General 10/21/24
--- OUTSIDE RECORDS SUMMARY | 2025-08-28 15:02 | XMS_ITS | Encounter Summary ---
Author Organization [employer] Address [address] [place] [address] Care Team Providers Care Mounter Smoking Pipe Name Role Phone Chayito Holman DO Primary Care Provider + [phone] Encounter Details Date Type Department Care Team (Latest Contact Info) Description 08/27/2025 Travel Social History Tobacco Use Types Packs/Day [...] documented as of this encounter Care Teams Mounter Smoking Pipe Relationship Specialty Start Date End Date Chayito Holman DO [address] [place] [address] PCP - General Family Medicine 11/19/24 documented as of this encounter
--- OUTSIDE RECORDS SUMMARY | 2025-08-28 15:03 | XMS_ITS | Encounter Summary ---
Author Organization [employer] Address [address] [facility] [address] [place] [address] Care Team Providers Care Registered Land Surveyor Name Role Phone Chayito Holman DO Primary Care Provider + [phone] Reason for Visit * Reason Onset Date Comments Returning Call 10/15/2024 Encounter Details Date Type Department Care Team ([facility] Contact Info) Description 10/15/2024 Telephone [facility] [address] [place], [place] [phone] Shakeel Rouse MD [address] [place], [place] [phone] Returning Call Social History Tobacco Use Types [...] a call but unsure it was from. Vegetable Preparer did not see any documentation. documented in this encounter Plan of Treatment Not on file documented as of this encounter Visit Diagnoses Not on filedocumented in this encounter Care Teams Registered Land Surveyor Relationship Specialty Start Date End Date Chayito Holman DO [address] [place] [address] PCP - General Family Medicine 11/19/24 documented as of this encounter
--- OUTSIDE RECORDS SUMMARY | 2025-08-28 15:03 | XMS_ITS | Clinical Summary ---
Author Organization [facility] Address [address] [place] [phone] Phone Care Team Providers Care Medical Diagnostic Radiographer Name Role Phone Chayito Holman DO Primary Care Provider +1- [phone] Social History Tobacco Use Types Packs/Day Years [...] Signed Date: 12/04/2024 09:19 ET Workstation ID: [id number] Transcribed By: Self Edit Transcribed Date: 12/04/2024 08:32 ET Narrative 12/04/2024 9:19 AM EST EXAM: MG MAMMO DIGITAL SCREENING W NILO BILAT EXAM DATE AND TIME: 12/03/2024 3:59 PM HISTORY: Screening COMPARISON: Patient's previous mammograms are in located in [place] and not available. This is considered a new baseline examination. TECHNIQUE: Bilateral digital breast tomosynthesis was performed in the CC and MLO projections. Computer aided detection with [employer] Pro[employer] AI 3D 3.1 was employed. TISSUE [...] Patient's previous mammograms are in located in [place] andnot available. This is considered a new [...] Signed Date: 12/04/2024 09:19 ET Workstation ID: [id number] Transcribed By: Self Edit Transcribed Date: 12/04/2024 08:32 ET us Chayito Holman DO IMG BI PROCEDURES Final Re sult from Last 3 Months or Most Recently Relevant to Health Maintenance Insurance [place] Care Teams Medical Diagnostic Radiographer Relationship Specialty Start Date End Date Chayito Holman DO [address] [place] [address] PCP - General Family Medicine 11/27/24
--- OUTSIDE RECORDS SUMMARY | 2025-08-28 15:03 | XMS_ITS | Clinical Summary ---
Author Organization [employer] Address [address] [facility] [address] [place] [address] Care Team Providers Care Communications Assistant Name Role Phone Chayito Holman DO Primary Care Provider + [phone] Allergies No known active allergies Medications * This document contains information received from the source organization and may not represent a complete record from that organization. Blood Pressure Monitoring (Comfort Touch BP Cuff/Large) misc 1 kit 2 times daily. 1 each 4 Active omeprazole OTC (PriLOSEC OTC) 20 MG EC tablet Take 1 tablet (20 mg) by mouth before breakfast. Do not crush, chew, or split. 30 tablet 11 4 Active naproxen (Naprosyn) 500 MG tablet Take 1 tablet (500 mg) by mouth if needed in the morning and at bedtime for mild pain. 40 tablet 1 5 11/18/19 26 Active baclofen (Lioresal) 10 MG tablet Take 1 tablet (10 mg) by mouth if needed in the morning, at noon, and at bedtime for muscle spasms. 60 tablet 1 5 Active Diclofenac Sodium 1 % gel Apply 2 g topically if needed in the morning, at noon, in the evening, and at bedtime (pain). 150 g 3 5 Active hydrOXYzine pamoate (Vistaril) 25 MG capsule Take 1 capsule (25 mg) by mouth if needed in the morning, at noon, in the evening, and at bedtime for anxiety. 30 capsule 1 5 Active Drospirenone (Slynd) 4 MG tablet Take 1 tablet by mouth Once per day. 28 tablet 11 5 Active cetirizine (ZyrTEC) 10 MG tablet TAKE 1 TABLET BY MOUTH EVERY DAY 90 tablet 3 Active mirtazapine (Remeron) 7.5 MG tablet Take 0.5 tablets (3.75 mg) by mouth at bedtime. 15 tablet 3 5 05/13/20 26 Active Tirzepatide (Mounjaro) 15 MG/0.5ML solution auto-injector Inject under the skin. Active nitrofurantoin, macrocrystal-mo nohydrate, (Macrobid) 100 MG capsule Take 1 capsule (100 mg) by mouth 2 times daily for 5 days. 10 capsule 5 09/01/20 25 Active Active Problems Problem Noted Date Diagnosed Date Seasonal allergies 05/13/2025 Fibromyalgia 05/13/2025 Perimenopause 01/07/2025 Assessment & Plan (01/07/2025 5:13 PM EDT): I ordered labs today and I refer patient for follow-up regarding perimenopausal state and counseling about control Major depression, recurrent, chronic 11/18/2024 SLE (systemic lupus erythematosus) ([facility]) Anxiety 10/18/2024 Chronic gastroesophageal reflux disease 10/18/20 24 Raynaud disease 10/18/2024 Resolved Problems Problem Noted Date Diagnosed Date Resolved Date Encounter for surveillance o f contraceptive pills 01/07/2025 05/13/2025 Assessment & Plan (01/07/2025 5:13 PM EDT): I will refill norethindrone 0.35 mg daily Encounters Date Type Department Care Team Description 08/27/2025 3:20 PM EST Office Visit [facility] [address] [place] [phone] Basim Garcia MD Dysuria (Primary Dx); Vaginal discharge; Urine abnormality 08/27/2025 Travel from Last 3 Months Immunizations Immunization Administration Dates Next Due Hep B, adult [...] your housing situation today? I have nicki carolyn 11/18/[address] you li [...] Q2 Not on file 11/18/2024 Comments No Intention Date Recorded No desire to become (finding) 0 02/18/2025 Sex and Gender Information Value Date Recorded [...] Mass Index 26.83 08/27/2025 3:56 PM EST Plan of Treatment Health Maintenance Due Date Last Done Comments CT Colonography 1975 Colonoscopy 1975 Colorectal Cancer Screening 1975 FIT DNA/Cologuard 1975 FIT 1975 FOBT 1975 Sigmoidoscopy 1975 Hepatitis B Vaccines (2 of 3 - 19+ 3-dose series) 12/16/2024 11/18/2024 Depression Monitoring 05/18/2025 11/18/2024 , 11/18/2024 COVID-19 Vaccine (1 - 2023-2 5 season) 2025 Influenza Vaccine (#1) 2025 SDOH Screening 11/18/2025 11/18/2024 Mammogram 12/03/2025 12/03/2024, 12/03/2024 Family Planning (PISQ) 02/18/2026 02/18/2025 Alcohol/Substance Use Screening 05/13/2026 05/13/2025 Disability Screening 05/13/2026 05/13/2025 Tobacco Screening 08/27/2026 08/27/2025 Zoster Vaccines (1 of 2) 2027 Cervical Cancer Screening 02/18/2030 HPV/Cotest 02/18/2030 02/18/2025 Pap Smear 02/18/2030 02/18/2025 DTaP/Tdap/Td Vaccines (2 - T d or [...] Years) and At-Risk Patients (6 to 49) Years Aged Out No longer eligible b ased [...] Routine 08/27/2025 12:00 AM EST Urine abnormality HPV DNA, LOW/HIGH RISK Routine 02/18/2025 10:03 AM EDT PAP SMEAR Routine 02/18/2025 10:03 AM EDT Cervical cancer screening HEPATITIS C AB W/REFL TO HCV RNA, [...] Recently Relevant to Health Maintenance Results * Bacterial Vaginosis Panel (08/28/2025 12:00 AM EST) TRICHOMONAS VAGINALIS DETECTION BY PCR NOT DETECTED Not Detect [facility] BACTERIAL VAGINOSIS DETECTION BY PCR NEGATIVE Negative [facility] Comment:The BV organism targ ets [...] DETECTION BY PCR NOT DETECTED Not Detect [facility] Kath glab krusei PCR NOT DETECTED Not Detect [facility] Swab Vaginal structure / Unknown 08/28/2025 08/28/2025 us Basim Garcia MD LAB MICROBIOLOGY - GENERAL ORDER RENZO Final Result Performing Organization Address City/State/RUST Co de Phone Number [facility] [address] [place] [phone] * (ABNORMAL) POCT urinalysis dipstick manually resulted (CPT 32155) (08/27/2025 4:08 PM EST) Pathologist [facility] Color, UA Yellow Clarity, UA Cloudy Glucose, UA Negative Bilirubin, UA Negative Ketones, UA Negative Spec Grav, UA 1.005 Blood, UA Positive(A) Negative, None Detected pH, UA 6.5 Protein, UA Negative Urobilinogen, UA 0.2 Leukocytes, UA Trace Negative, Rare, Trace Comment:large Nitrite, UA Negative Negative, None Detected Appearance, UA cludy QC Media Lot # [id number] Lot# Expiration Date [id number] Urine (Urine, Random) 08/27/2025 4:08 PM EST us Basim Garcia MD POINT OF CARE TEST ENTER/EDIT OR DERABLES Final Result * HPV DNA, Low/High Risk (02/18/2025 10:03 AM EDT) Pathologist [facility] HPV High Risk Negative Negative [facility] HPV Genotype [address] Negative [address] [facility] HPV Genotype [address] [facility] Comment:HPV testing performe d at [facility] (CLIA#[id number]), [address] [place] [phone].Testing for HPV was performed using the Ethan DOUG 6800system. The presence of HPV in the female genital tract isassociated with a number of diseases, including cervicalcarcinoma. The HPV DNA high risk pool tests for HPV 31, 33,35, 39, 45, 51, 52, 56, 58, 59, 66 and 68. The testing forHPV 16 and 18 genotypes has also been performed. A positiveresult indicates detection of nucleic acid sequences fromone or more subtypes, whereas a negative result indicatessuch sequences were not detected. 02/18/2025 10:0 3 AM EDT 02/19/2025 5:50 AM EDT us Emily Roberson [facility] LAB BLOOD ORDERABLES Varsha yuniel Result [facility] [address] [place] [phone] * Pap Smear (02/18/2025 10:03 AM EDT) Swab Cervix uteri structure / Unknown 02/18/2025 10:03 AM EDT 02/19/2025 5:50 AM EDT Narrative [facility] - 02/21/2025 9:58 AM EDT ----- ------- Name: Francesca Qiuros Age/Sex: 49/F : 1975 Unit#: [id number] Attend Dr: EMILY ROBERSON [facility] Re02/18/25 Status: NERY REF Location: [id number] Disch: ----- ------- SPEC : [id number] RECD: 02/19/25 STATUS: ANDRE HUERTA NUM: [id number] FELICIANO: 02/18/25-[address] [facility] [address]: EMILY ROBERSON [facility] ENTERED: 02/19/25 SP TYPE: Pap Smr OTHR DR: ORDERED: Pap Smear Interpretation Satisfactory for evaluation. Negative for intraepithelial lesion or malignancy. No endocervical cells seen. HPV High Risk: Negative HPV Genotyping 16: Negative HPV Genotyping 18: Negative Clinical Information LMP:Unknown date Previous PAP test:Unknown date/findings Other history:Oral contraceptive Material Received ThinPrep-Cervical ----- ------- Signed (signature on file) LIZBET Lindsay ([facility]) 02/21/25 0958 ----- ------- END OF REPORT Emily Roberson M LAB CYTOLOGY ORDERABLES F inal Result Performing Organization Address [facility]/ZIP Co de Phone Number [facility] [address] [place] [phone] * Hepatitis C Antibody with Reflex to HCV, RNA, Quantitative, Real-Time PCR (10/17/2024 3:42 PM EST) Hepatitis C Antibody Nonreactive Nonreactive [facility] Comment:Antibodies to HCV no t detected; does not exclude early acuteHCV infection. Blood Venous blood specimen / Unknown 10/17/2024 3:42 PM EST 10/17/2024 3:56 PM EST Chayito Holman DO LAB BLOOD ORDERABLES Final R esult Performing Organization Address [facility]/[place] Co de Phone Number [facility] [address] [place] [phone] * HIV-1/2 Antigen and Antibodies, Fourth Generation, with Reflexes (10/17/2024 3:42 PM EST) Pathologist [facility] HIV AB/AG Nonreactive Nonreactive [facility] Comment:HIV-1 p24 Ag and/or HIV-1/HIV-2 Ab not detected.A test result that is nonreactive does not exclude thepossibility of exposure to or infection with HIV-1 and/orHIV-2. Nonreactive results in this assay for individualswith prior exposure to HIV-1 and/or HIV-2 may be due toantigen and antibody levels that are below the limit ofdetection of this assay.The [employer] HIV Ag/Ab Combo assay result andsupplemental assay results should be interpreted inconjunction with the patient's clinical presentation,history and other laboratory results. If the results areinconsistent with clinical evidence, additional testing issuggested to confirm the result. Blood Venous blood specimen / Unknown 10/17/2024 3:42 PM EST 10/17/2024 3:56 PM EST Chayito Holman DO LAB BLOOD ORDERABLES Final R esult [facility] [address] [place] [phone] from Last 3 Months or Most Recently Relevant to Health Maintenance Insurance [facility] [employer] F[employer] Care Teams Communications Assistant Relationship Specialty Start Date End Date Chayito Holman DO [address] [place] [phone] PCP - General Family Medicine 11/19/24
[2025-08-29 13:56] LABS: CT PCR NOT DETECTED (Not Detect.); NG PCR NOT DETECTED (Not Detect.)
== END 2025-08-28 12:08 | disposition home or self-care (01) ==
LOC: HO.LNP 12:07
PROVIDERS: Visit Provider Emergency Medicine
DX: R82.90 Unspecified abnormal findings in urine (principal); Z20.2 Contact with and (suspected) exposure to infections with a predominantly sexual mode of transmission
CPT/HCPCS: 81515; 87491; 87591; 87661